=== PATIENT | male | born 1970 | race Caucasian/White ===

== ENCOUNTER 2016-09-02 10:01 | Emergency (ER) | payer BC ==
--- NOTE | 2016-09-02 10:50 | EDM.PDOC ---
ED HPI GENERAL MEDICAL PROBLEM - General Chief Complaint: Back Pain or Injury Stated Complaint: NECK and BACK PAIN Time Seen by Provider: 09/02/16 10:11 Source of Information: Reports: Patient History Limitations: Reports: No Limitations - History of Present Illness INITIAL COMMENTS - FREE TEXT/NARRATIVE: HISTORY AND PHYSICAL: History of present illness: [Patient comes to the emergency room at the request of his chiropractor. He has been complaining of left sided posterior neck pain for the past month. With Certain neck movements he has noticed headache, lightheadedness, blurred vision as well as seeing stars. He reports that the chiropractor was concerned because his eyes were bouncing around during her exam. She was concerned that he wasn't getting good blood flow to his head. He denies chest pain, shortness of breath and difficulty breathing. No fainting or loss of consciousness. Appetite has been good. No abdominal pain, nausea or vomiting. No difficulty passing his urine. Stools have been normal. Denies numbness and tingling to extremities. He also complains of L flank pain. He has a history of kidney stones and thinks that he may be trying to pass one. No fever or chills. No burning with urination or blood in his urine. Denies abdominal pain. Father is alive and well. Hx of colon CA. Mother is .] Review of systems: As per history of present illness and below otherwise all systems reviewed and negative. Past medical history: As per history of present illness and as reviewed below otherwise noncontributory. Surgical history: As per history of present illness and as reviewed below otherwise noncontributory. Social history: No reported history of drug or alcohol abuse. Family history: As per history of present illness and as reviewed below otherwise noncontributory. Physical exam: HEENT: Atraumatic, normocephalic. Neck is supple. No thyromegaly or swelling. No carotid bruit. Oral mucous membranes are pink and moist. Patient complains of blurred vision after auscultation of L carotid. Lungs: Clear to auscultation, breath sounds equal bilaterally. Heart: S1S2, regular, negative for clicks, rubs, or JVD. Abdomen: Soft, nondistended, nontender. Negative for masses, guarding or rebound. Negative for costovertebral tenderness. Pelvis: Stable nontender. Genitourinary: Deferred. Rectal: Deferred. Musculoskeletal: Feels lightheaded with neck flexion, left neck rotation, and right lateral flexion. Extremities: Atraumatic. No cyanosis or edema to feet or lower legs. Neurovascular unremarkable. Neuro: Awake, alert, oriented. Motor and sensory unremarkable throughout. Exam nonfocal. Diagnostics: [CBC, CMP, UA, CT abdomen and pelvis w/o contast, CTA head and neck] Therapeutics: [clonidine 0.2mg po] Impression: [Elevated BP] Plan: [Consulted with Dr. Inocencia De Oliveira who recommends a CTA head and neck, and no driving while he is having these symptoms. CTA head and neck show no abnormal findings. Patient feels that his symptoms have improved while he has been in the ER. Dr. De Oliveira would like to see patient in office next week. Pt is referred to establish w/ a local PCP. BP is consistently elevated while in the ER. Suspect that he always runs high. Will have him follow w/ PCP for reevaluation and initiation of medication if needed. Patient is advised that his abdominal CT scan shows no kidney stones. No driving until patient is evaluated by Dr. De Oliveira. ] Definitive disposition and diagnosis as appropriate pending reevaluation and review of above. back & head Pain Score (Numeric/FACES): 5 - Related Data Allergies Allergy/AdvReac Type Severity Reaction Status Date / Time No Known Allergies Allergy Verified 09/02/16 10:29 Home Meds: Home Meds Naproxen 250 mg PO DAILY 09/21/15 [History] Past Medical History HEENT History: Reports: None Cardiovascular History: Reports: None Respiratory History: Reports: None Gastrointestinal History: Reports: None Genitourinary History: Reports: Renal Calculus Musculoskeletal History: Reports: None Neurological History: Reports: None Psychiatric History: Reports: None Endocrine/Metabolic History: Reports: None Hematologic History: Reports: None Immunologic History: Reports: None Oncologic (Cancer) History: Reports: None Dermatologic History: Reports: None - Infectious Disease History Infectious Disease History: Reports: None - Past Surgical History Musculoskeletal Surgical History: Reports: Other (See Below) Other Musculoskeletal Surgeries/Procedures:: Back Surgery Social & Family History - Family History Family Medical History: Noncontributory - Tobacco Use Smoking Status *Q: Never Smoker Second Hand Smoke Exposure: No - Caffeine Use Caffeine Use: Reports: Soda - Recreational Drug Use Recreational Drug Use: No ED ROS GENERAL - Review of Systems Review Of Systems: ROS reveals no pertinent complaints other than HPI. ED EXAM, UPPER BACK/NECK PAIN - Physical Exam Exam: See Below Course - Vital Signs Last Recorded V/S: Last Vital Signs Temp 97.5 F 09/02/16 10:29 Pulse 73 09/02/16 15:46 Resp 16 09/02/16 15:46 BP 122/73 09/02/16 15:46 Pulse Ox 97 09/02/16 15:46 - Orders/Labs/Meds Orders: Active Orders 24 hr Category Date Time Status EKG Documentation Completion [RC] STAT Care 09/02/16 10:37 Active Ang Head [CT] Stat Exams 09/02/16 11:52 Taken CTA Neck W & W/O Contrast [Ang Neck] [CT] Stat Exams 09/02/16 11:52 Taken Labs: Laboratory Tests 09/02/16 09/02/16 09/02/16 Range/Units 11:04 11:04 11:13 WBC 7.60 (4.0-11.0) K/uL RBC 5.20 (4.50-5.90) M/uL Hgb 15.6 (13.0-17.0) g/dL Hct 45.5 (38.0-50.0) % MCV 87.5 (80.0-98.0) fL MCH 30.0 (27.0-32.0) pg MCHC 34.3 (31.0-37.0) g/dL RDW Std Deviation 38.7 (28.0-62.0) fl RDW Coeff of Alonso 12 (11.0-15.0) % Plt Count 289 (150-400) K/uL MPV 9.90 (7.40-12.00) fL Neut % (Auto) 64.4 (48.0-80.0) % Lymph % (Auto) 25.5 (16.0-40.0) % Kay % (Auto) 5.8 (0.0-15.0) % Eos % (Auto) 3.4 (0.0-7.0) % Baso % (Auto) 0.9 (0.0-1.5) % Neut # (Auto) 4.9 (1.4-5.7) K/uL Lymph # (Auto) 1.9 (0.6-2.4) K/uL Kay # (Auto) 0.4 (0.0-0.8) K/uL Eos # (Auto) 0.3 (0.0-0.7) K/uL Baso # (Auto) 0.1 (0.0-0.1) K/uL Nucleated RBC % 0.0 /100WBC Nucleated RBCs # 0 K/uL Sodium 139 (136-146) mmol/L Potassium 4.1 (3.5-5.1) mmol/L Chloride 105 (98-110) mmol/L Carbon Dioxide 27 (21-31) mmol/L BUN 11 (6.0-23.0) mg/dL Creatinine 0.9 (0.6-1.5) mg/dL Est Cr Clr Drug Dosing 118.37 mL/min Estimated GFR (MDRD) > 60.0 ml/min Glucose 146 H (60-110) mg/dL Calcium 8.7 L (8.8-10.8) mg/dL Total Bilirubin 0.6 (0.1-1.5) mg/dL AST 20 (5-40) IU/L ALT 43 (8-54) IU/L Alkaline Phosphatase 94 (40-150) Total Protein 7.0 (6.0-8.0) g/dL Albumin 3.7 (3.5-5.0) g/dL Globulin 3.3 (2.0-3.5) g/dL Albumin/Globulin Ratio 1.1 L (1.3-2.8) Urine Color YELLOW Urine Appearance CLEAR Urine pH 5.5 (5.0-8.0) Ur Specific [place] 1.025 (1.001-1.035) Urine Protein NEGATIVE (NEGATIVE) mg/dL Urine Glucose (UA) NEGATIVE (NEGATIVE) mg/dL Urine Ketones NEGATIVE (NEGATIVE) mg/dL Urine Occult Blood TRACE-INTACT (NEGATIVE) Urine Nitrite NEGATIVE (NEGATIVE) Urine Bilirubin NEGATIVE (NEGATIVE) Urine Urobilinogen 0.2 (<2.0) EU/dL Ur Leukocyte Esterase NEGATIVE (NEGATIVE) Urine RBC 0-1 (0-2/HPF) Urine WBC 1-3 (0-5/HPF) Ur Epithelial Cells RARE (NONE-FEW) Urine Bacteria FEW (NEGATIVE) Urine Mucus LIGHT (NONE-MOD) Meds: Medications Discontinued Medications Generic Name Dose Route Start Last Admin Trade Name Leena PRN Reason Stop Dose Admin Clonidine HCl 0.2 mg 09/02/16 14:15 09/02/16 14:20 Catapres PO 09/02/16 14:16 0.2 mg ONETIME ONE Administration Iopamidol 100 ml 09/02/16 12:28 09/02/16 13:04 Isovue Multipack-370 (76%) IVPUSH 09/02/16 12:29 100 ml ONETIME STA Administration Departure - Departure Time of Disposition: 15:45 Disposition: Home, Self-Care 01 Condition: Good Clinical Impression: Light-headed feeling, Elevated BP without diagnosis of hypertension - Discharge Information Referrals: PCP,Unknown [Primary Care Provider] - Forms: ED Department Discharge Additional Instructions: The following information is given to patients seen in the emergency department who are being discharged to home. This information is to outline your options for follow-up care. We provide all patients seen in our emergency department with a follow-up referral. The need for follow-up, as well as the timing and circumstances, are variable depending upon the specifics of your emergency department visit. If you don't have a primary care physician on staff, we will provide you with a referral. We always advise you to contact your personal physician following an emergency department visit to inform them of the circumstance of the visit and for follow-up with them and/or the need for any referrals to a consulting specialist. The emergency department will also refer you to a specialist when appropriate. This referral assures that you have the opportunity for follow-up care with a specialist. All of these measure are taken in an effort to provide you with optimal care, which includes your follow-up. Under all circumstances we always encourage you to contact your private physician who remains a resource for coordinating your care. When calling for follow-up care, please make the office aware that this follow-up is from your recent emergency room visit. If for any reason you are refused follow-up, please contact the [facility] emergency department at and asked to speak to the emergency department charge nurse. [facility] Specialty care- Neurology Professional Building [address] [place] [address], [address] [place] [address] Call and schedule an appointment with Dr. De Oliveira at the above listed phone number. She would like to see you next week. [facility] [address] [place] [id number] Call and schedule an appointment with a provider at the above listed clinic to establish medical care. You have been advised not to drive any motor vehicle until you see neurologist. Return to ER as needed as discussed. - My Orders Last 24 Hours: My Active Orders 09/02/16 10:37 EKG Documentation Completion [RC] STAT 09/02/16 11:52 Ang Head [CT] Stat CTA Neck W & W/O Contrast [Ang Neck] [CT] Stat - Assessment/Plan Last 24 Hours: My Active Orders 09/02/16 10:37 EKG Documentation Completion [RC] STAT 09/02/16 11:52 Ang Head [CT] Stat CTA Neck W & W/O Contrast [Ang Neck] [CT] Stat
[2016-09-02 11:32] LABS: CHLORIDE,CL 105 mmol/L (98-110); SODIUM,NA 139 mmol/L (136-146)
[2016-09-02] MEDS ORDERED: Iopamidol 755 MG/ML 500 ML Multipack Bottle IVPUSH STA (12:28)
--- NOTE | 2016-09-02 13:33 | CT ---
EXAM DATE: 09/02/16 PATIENT'S AGE: 45 Patient: ALONA CASTANEDA Facility: [place], [place] Site . Site : 1970 Study: CT Abdomen/Pelvis [id number]/21/2017 1:03:32 PM Ordering Physician: Sin Henry Final Report: INDICATION: Left flank pain. Nephrolithiasis. TECHNIQUE: CT abdomen and pelvis without contrast. COMPARISON: September 21, 2015. FINDINGS: LOWER CHEST: Unremarkable. LIVER: Normal in size and attenuation. No masses. GALLBLADDER AND BILE DUCTS: No stones or inflammation. No biliary dilatation. PANCREAS: Unremarkable. No mass or inflammation. SPLEEN: Normal in size. No masses. ADRENAL GLANDS: Normal in size. No nodules. KIDNEYS: Normal. Bowel nonobstructive bilateral renal stones. No ureteral stones and no hydronephrosis. No sign of perinephric edema. GI TRACT: Unremarkable. Normal in caliber. No sign of mass or inflammation. VASCULATURE: Unremarkable. LYMPH NODES: No lymphadenopathy. OMENTUM/PERITONEUM/ABDOMINAL WALL: Unremarkable. No sign of mass or infiltration. No free air or significant free fluid. PELVIS: Unremarkable. No pelvic masses. BONES: Unremarkable for age. IMPRESSION: Nonobstructive bilateral nephrolithiasis. No ureteral stones, hydronephrosis, or other explanation for left flank pain. Dictated by Jeronimo Weiner MD @ 09/02/2016 1:26:54 PM Dictated by: Jeronimo Weiner MD @ 09/02/2016 13:27:18 (Electronic Signature) Report Signed by Proxy. [facility] STATE HOSPITALJodee
[2016-09-02] MEDS ORDERED: cloNIDine 0.1 MG Tab PO ONE (14:15)
[2016-09-02 16:37] VITALS: BP 137/90
--- NOTE | 2016-09-05 11:15 | CT ---
EXAM DATE: 09/02/16 PATIENT'S AGE: 45 Patient: ALONA CASTANEDA Facility: [place], [place] Site . Site : 1970 Study: CT Head Angio [id number]/21/2017 2:01:04 PM Ordering Physician: Sin Henry Final Report: Indication: Headache, blurry vision, and neck pain. TECHNIQUE: CTA of the head and neck was performed after the administration of intravenous contrast. Multiplanar Maximum Intensity Projections (MIPs) were created on a separate workstation at the request of the referring physician. COMPARISON: None available FINDINGS: Angiographic findings: Neck: The neck CTA is nondiagnostic, because there is minimal, if any, contrast opacification of the cervical arteries. There is no atherosclerotic calcification of the aortic arch or origins of the brachiocephalic vessels. The configuration of the brachiocephalic vessels is typical. The right carotid bifurcation lies at the C4-C5 intervertebral level. The left carotid bifurcation lies at the C5 vertebral level. There is no atherosclerotic calcification of either carotid bifurcation. Head: The intracranial internal carotid arteries are normal. An anterior communicating artery is well visualized and is normal. The anterior and middle cerebral arteries are normal. There is a tiny right posterior communicating artery. The vertebral arteries are codominant. The intracranial vertebral arteries are normal. Both posterior inferior cerebellar arteries are normal. The basilar artery is normal. Both anterior inferior cerebellar arteries are normal. Both superior cerebellar and posterior cerebral arteries are normal. There is no aneurysm or vascular malformation. Deep cerebral veins and dural venous sinuses are unremarkable. Non-angiographic findings: Ventricles are of normal size and morphology. No mass effect or midline shift is present. The visualized portions of the orbits are normal. There is no cervical lymphadenopathy. The thyroid and salivary glands are normal. The muscles of the neck are normal. Fascial planes are preserved and the deep spaces of the neck are normal. The visualized airway is widely patent. The visualized lungs are clear. The paranasal sinuses and mastoid air cells are clear. There are no suspicious lytic or blastic lesions. IMPRESSION: 1. No intracranial vascular abnormality. 2. Neck CTA is nondiagnostic for evaluation of cervical artery stenosis because the cervical arteries are not opacified with contrast. Please note that all CT scans at this facility use dose modulation, iterative reconstruction, and/or weight-based dosing when appropriate to reduce radiation dose to as low as reasonably achievable. Dictated by Hakan Landrum MD @ Sep 02 2016 2:24PM (Electronic Signature) Report Signed by Proxy. MTDD
--- NOTE | 2016-09-05 11:16 | CT ---
EXAM DATE: 09/02/16 PATIENT'S AGE: 45 Patient: ALONA CASTANEDA Facility: [place], [place] Site . Site : 1970 Study: CT Head Angio [id number]/21/2017 2:01:04 PM Ordering Physician: Sin Henry Final Report: Indication: Headache, blurry vision, and neck pain. TECHNIQUE: CTA of the head and neck was performed after the administration of intravenous contrast. Multiplanar Maximum Intensity Projections (MIPs) were created on a separate workstation at the request of the referring physician. COMPARISON: None available FINDINGS: Angiographic findings: Neck: The neck CTA is nondiagnostic, because there is minimal, if any, contrast opacification of the cervical arteries. There is no atherosclerotic calcification of the aortic arch or origins of the brachiocephalic vessels. The configuration of the brachiocephalic vessels is typical. The right carotid bifurcation lies at the C4-C5 intervertebral level. The left carotid bifurcation lies at the C5 vertebral level. There is no atherosclerotic calcification of either carotid bifurcation. Head: The intracranial internal carotid arteries are normal. An anterior communicating artery is well visualized and is normal. The anterior and middle cerebral arteries are normal. There is a tiny right posterior communicating artery. The vertebral arteries are codominant. The intracranial vertebral arteries are normal. Both posterior inferior cerebellar arteries are normal. The basilar artery is normal. Both anterior inferior cerebellar arteries are normal. Both superior cerebellar and posterior cerebral arteries are normal. There is no aneurysm or vascular malformation. Deep cerebral veins and dural venous sinuses are unremarkable. Non-angiographic findings: Ventricles are of normal size and morphology. No mass effect or midline shift is present. The visualized portions of the orbits are normal. There is no cervical lymphadenopathy. The thyroid and salivary glands are normal. The muscles of the neck are normal. Fascial planes are preserved and the deep spaces of the neck are normal. The visualized airway is widely patent. The visualized lungs are clear. The paranasal sinuses and mastoid air cells are clear. There are no suspicious lytic or blastic lesions. IMPRESSION: 1. No intracranial vascular abnormality. 2. Neck CTA is nondiagnostic for evaluation of cervical artery stenosis because the cervical arteries are not opacified with contrast. Please note that all CT scans at this facility use dose modulation, iterative reconstruction, and/or weight-based dosing when appropriate to reduce radiation dose to as low as reasonably achievable. Dictated by Hakan Landrum MD @ Sep 02 2016 2:24PM (Electronic Signature) Report Signed by Proxy. MTDD
== END 2016-09-02 15:59 | disposition home or self-care (01) ==
LOC: MW.ED 10:01
DX: R03.0 Elevated blood-pressure reading, without diagnosis of hypertension (principal); Z79.899 Other long term (current) drug therapy
CPT/HCPCS: 36415; 70496; 70498; 74176; 80053; 81001; 85025; 93005; 99284; A9270; Q9967; 99283

== ENCOUNTER 2018-03-12 22:06 | Emergency (ER) | payer BC ==
[2018-03-12] MEDS ORDERED: Ondansetron 4 MG/2 ML SDV IVPUSH ONE (22:18)
[2018-03-12] MEDS ORDERED: Ketorolac 30 MG/ML SDV IVPUSH ONE (22:18)
[2018-03-12] MEDS ORDERED: Sodium Chloride 0.9% 1,000 ML IV ONE (22:18)
--- NOTE | 2018-03-12 22:19 | EDM.PDOC ---
ED HPI GENERAL MEDICAL PROBLEM - General Chief Complaint: Flank Pain Stated Complaint: KIDNEY STONE Time Seen by Provider: 03/12/18 22:16 - History of Present Illness INITIAL COMMENTS - FREE TEXT/NARRATIVE: HISTORY AND PHYSICAL: History of present illness: Patient's 47-year-old white male with history of urolithiasis who presents with acute right flank pain with associated nausea there's been no fever chills no trauma no other concern he had a similar episode in recent past. Review of systems: As per history of present illness and below otherwise all systems reviewed and negative. Past medical history: As per history of present illness and as reviewed below otherwise noncontributory. Surgical history: As per history of present illness and as reviewed below otherwise noncontributory. Social history: No reported history of drug or alcohol abuse. Family history: As per history of present illness and as reviewed below otherwise noncontributory. Physical exam: HEENT: Atraumatic, normocephalic, pupils reactive, negative for conjunctival pallor or scleral icterus, mucous membranes moist, throat clear, neck supple, nontender, trachea midline. Lungs: Clear to auscultation, breath sounds equal bilaterally, chest nontender. Heart: S1S2, regular, negative for clicks, rubs, or JVD. Abdomen: Soft, nondistended, nontender. Negative for masses or hepatosplenomegaly. Right-sided costovertebral tenderness. Pelvis: Stable nontender. Genitourinary: Deferred. Rectal: Deferred. Extremities: Atraumatic, negative for cords or calf pain. Neurovascular unremarkable. Neuro: Awake, alert, oriented. Cranial nerves II through XII unremarkable. Cerebellum unremarkable. Motor and sensory unremarkable throughout. Exam nonfocal. Diagnostics: CBC CMP UA CT abdomen and pelvis Therapeutics: Saline 1 L bolus and Toradol 30 mg IV Zofran 4 mg IV Impression: #1 acute right flank pain #2 history of urolithiasis Definitive disposition and diagnosis as appropriate pending reevaluation and review of above. left flank Pain Score (Numeric/FACES): 5 - Related Data Allergies Allergy/AdvReac Type Severity Reaction Status Date / Time No Known Allergies Allergy Verified 03/12/18 22:22 Home Meds: Home Meds Losartan [Cozaar] 100 mg BEDTIME 01/19/18 [History] Tamsulosin [Flomax] 0.4 mg PO DAILY #14 cap.er 01/19/18 [Rx] amLODIPine Besylate [Norvasc] 5 mg BEDTIME 01/19/18 [History] atorvaSTATin [Lipitor] 10 mg BEDTIME 01/19/18 [History] Past Medical History HEENT History: Reports: None Cardiovascular History: Reports: None Respiratory History: Reports: None Gastrointestinal History: Reports: None Genitourinary History: Reports: Renal Calculus Musculoskeletal History: Reports: None Neurological History: Reports: None Psychiatric History: Reports: None Endocrine/Metabolic History: Reports: None Hematologic History: Reports: None Immunologic History: Reports: None Oncologic (Cancer) History: Reports: None Dermatologic History: Reports: None - Infectious Disease History Infectious Disease History: Reports: None - Past Surgical History Musculoskeletal Surgical History: Reports: Other (See Below) Other Musculoskeletal Surgeries/Procedures:: Back Surgery Social & Family History - Family History Family Medical History: Noncontributory - Caffeine Use Caffeine Use: Reports: Soda ED ROS GENERAL - Review of Systems Review Of Systems: ROS reveals no pertinent complaints other than HPI. ED EXAM, GENERAL - Physical Exam Exam: See Below (See dictation) Course - Vital Signs Text/Narrative:: Case was discussed with urology on-call including CT findings on these results were also reviewed with patient and family will be discharged home he is to call Dr. Wallace office in a.m. to schedule appointment in the next several days and be discharged on hydrocodone and Zofran to take as prescribed and is to continue his Flomax Last Recorded V/S: Last Vital Signs Temp 36.2 C 03/12/18 22:06 Pulse 87 03/12/18 22:06 Resp 16 03/12/18 22:06 BP 181/117 H 03/12/18 22:06 Pulse Ox 95 03/12/18 22:06 - Orders/Labs/Meds Orders: Active Orders 24 hr Category Date Time Status COMPREHENSIVE METABOLIC PN,CMP [CHEM] Stat Lab 03/12/18 22:25 Received Labs: Laboratory Tests 03/12/18 03/12/18 Range/Units 22:15 22:25 WBC 11.23 H (4.0-11.0) K/uL RBC 5.11 (4.50-5.90) M/uL Hgb 15.6 (13.0-17.0) g/dL Hct 44.9 (38.0-50.0) % MCV 87.9 (80.0-98.0) fL MCH 30.5 (27.0-32.0) pg MCHC 34.7 (31.0-37.0) g/dL RDW Std Deviation 38.3 (28.0-62.0) fl RDW Coeff of Alonso 12 (11.0-15.0) % Plt Count 308 (150-400) K/uL MPV 9.50 (7.40-12.00) fL Neut % (Auto) 77.3 (48.0-80.0) % Lymph % (Auto) 15.1 L (16.0-40.0) % [place] % (Auto) 5.1 (0.0-15.0) % Eos % (Auto) 2.1 (0.0-7.0) % Baso % (Auto) 0.4 (0.0-1.5) % Neut # (Auto) 8.7 H (1.4-5.7) K/uL Lymph # (Auto) 1.7 (0.6-2.4) K/uL [place] # (Auto) 0.6 (0.0-0.8) K/uL Eos # (Auto) 0.2 (0.0-0.7) K/uL Baso # (Auto) 0.0 (0.0-0.1) K/uL Nucleated RBC % 0.0 /100WBC Nucleated RBCs # 0 K/uL Urine Color YELLOW Urine Appearance CLEAR Urine pH 5.5 (5.0-8.0) Ur Specific [place] >= 1.030 (1.001-1.035) Urine Protein TRACE H (NEGATIVE) mg/dL Urine Glucose (UA) 500 H (NEGATIVE) mg/dL Urine Ketones NEGATIVE (NEGATIVE) mg/dL Urine Occult Blood LARGE H (NEGATIVE) Urine Nitrite NEGATIVE (NEGATIVE) Urine Bilirubin NEGATIVE (NEGATIVE) Urine Urobilinogen 0.2 (<2.0) EU/dL Ur Leukocyte Esterase NEGATIVE (NEGATIVE) Urine RBC 27-30 (0-2/HPF) Urine WBC 0-3 (0-5/HPF) Ur Epithelial Cells RARE (NONE-FEW) Urine Bacteria RARE (NEGATIVE) Urine Mucus LIGHT (NONE-MOD) Meds: Medications Discontinued Medications Generic Name Dose Route Start Last Admin Trade Name Freq PRN Reason Stop Dose Admin Hydromorphone HCl 1 mg 03/12/18 23:07 03/12/18 23:11 Dilaudid IVPUSH 03/12/18 23:08 1 mg ONETIME ONE Administration Sodium Chloride 1,000 mls @ 999 mls/hr 03/12/18 22:18 03/12/18 23:07 Normal Saline IV 03/12/18 23:18 999 mls/hr BOLUS ONE Administration Ketorolac Tromethamine 30 mg 03/12/18 22:18 03/12/18 22:26 Toradol IVPUSH 03/12/18 22:19 30 mg ONETIME ONE Administration Ondansetron HCl 4 mg 03/12/18 22:18 03/12/18 22:27 Zofran IVPUSH 03/12/18 22:19 4 mg ONETIME ONE Administration Departure - Departure Time of Disposition: 23:25 Disposition: Home, Self-Care 01 Condition: Good Clinical Impression: Ureteric colic, Kidney stone, Ureterolithiasis - Discharge Information Referrals: PCP,None [Primary Care Provider] - Forms: ED Department Discharge Additional Instructions: The following information is given to patients seen in the emergency department who are being discharged to home. This information is to outline your options for follow-up care. We provide all patients seen in our emergency department with a follow-up referral. The need for follow-up, as well as the timing and circumstances, are variable depending upon the specifics of your emergency department visit. If you don't have a primary care physician on staff, we will provide you with a referral. We always advise you to contact your personal physician following an emergency department visit to inform them of the circumstance of the visit and for follow-up with them and/or the need for any referrals to a consulting specialist. The emergency department will also refer you to a specialist when appropriate. This referral assures that you have the opportunity for followup care with a specialist. All of these measure are taken in an effort to provide you with optimal care, which includes your followup. Under all circumstances we always encourage you to contact your private physician who remains a resource for coordinating your care. When calling for followup care, please make the office aware that this follow-up is from your recent emergency room visit. If for any reason you are refused follow-up, please contact the [facility] emergency department at and asked to speak to the emergency department charge nurse. [facility] - Urology [address] [place] [id number] Hydrocodone Zofran as prescribed continue Flomax call to schedule appointment above as discussed and return as needed as discussed - My Orders Last 24 Hours: My Active Orders 03/12/18 22:25 COMPREHENSIVE METABOLIC PN,CMP [CHEM] Stat - Assessment/Plan Last 24 Hours: My Active Orders 03/12/18 22:25 COMPREHENSIVE METABOLIC PN,CMP [CHEM] Stat
--- NOTE | 2018-03-12 23:01 | CT ---
INDICATION: Left flank pain TECHNIQUE: CT abdomen and pelvis without contrast. COMPARISON: Abdomen and pelvis CT 01/19/2018 FINDINGS: Lower chest: Unremarkable. Liver: Normal in size and attenuation. No masses. Gallbladder and bile ducts: No stones or inflammation. No biliary dilatation. Pancreas: Unremarkable. No mass or inflammation. Spleen: Normal in size. No masses. Adrenal glands: Normal in size. No nodules. Kidneys: Nonobstructing stones on the right with a right ureteropelvic junction stone measuring 6 millimeters without significant hydronephrosis. Multiple nonobstructing stones are also present on the left with 2 adjacent left ureteropelvic junction stones measuring 8 x 6 millimeters and total although without evidence of hydronephrosis. GI tract: There are nondilated loops of large or small intestine. Vasculature: Unremarkable. Lymph nodes: No lymphadenopathy. Abdominal wall/Omentum/Peritoneum: Unremarkable. No sign of mass or infiltration. No free air or significant free fluid. Pelvis: Unremarkable. No pelvic masses. Bones: Mild degenerative disc disease lumbar spine. IMPRESSION: 1. Nephrolithiasis with 2 clustered stones at the left ureteropelvic junction measuring 8 x 6 millimeters in total although without evidence of hydronephrosis. 2. Right ureteropelvic junction stone re-demonstrated measuring 6 millimeters without hydronephrosis. Please note that all CT scans at this facility use dose modulation, iterative reconstruction, and/or weight-based dosing when appropriate to reduce radiation dose to as low as reasonably achievable. Dictated by Michael Torres MD @ Mar 12 2018 10:53PM Signed by Dr. Michael Torres @ Mar 12 2018 11:00PM
[2018-03-12] MEDS ORDERED: HYDROmorphone 1 MG/ML Syringe IVPUSH ONE (23:07)
[2018-03-12 23:29] LABS: CHLORIDE,CL 102 mmol/L (98-107); SODIUM,NA 137 mmol/L (136-148)
[2018-03-12 23:38] VITALS: BP 159/102
== END 2018-03-12 23:38 | disposition home or self-care (01) ==
LOC: MW.ED 22:06
DX: N20.2 Calculus of kidney with calculus of ureter (principal); Z79.899 Other long term (current) drug therapy
CPT/HCPCS: 36415; 74176; 80053; 81001; 85025; 96361; 96374; 96375; 99284; J1170; J1885; J2405; J7040

== ENCOUNTER 2018-09-07 16:19 | Emergency (ER) | payer BC ==
[2018-09-07] MEDS ORDERED: Sodium Chloride 0.9% 2.5 ML Syringe FLUSH PRN (16:36)
[2018-09-07] MEDS ORDERED: Sodium Chloride 0.9% 10 ML Syringe FLUSH PRN (16:36)
--- NOTE | 2018-09-07 16:38 | EDM.PDOC ---
ED HPI GENERAL MEDICAL PROBLEM - General Chief Complaint: Genitourinary Problem Stated Complaint: peeing blood Time Seen by Provider: 09/07/18 16:37 Source of Information: Reports: Patient History Limitations: Reports: No Limitations - History of Present Illness INITIAL COMMENTS - FREE TEXT/NARRATIVE: HISTORY AND PHYSICAL: History of present illness: Patient is a 47-year-old male presents to the ED for blood in his urine. He states he's had grossly bloody urine x 3 days. He has a history of kidney stones but denies any back, abdominal, testicular pain. Denies fevers, chills, nausea, vomiting, diarrhea. Denies smoking history. Review of systems: As per history of present illness and below otherwise all systems reviewed and negative. Past medical history: As per history of present illness and as reviewed below otherwise noncontributory. Surgical history: As per history of present illness and as reviewed below otherwise noncontributory. Social history: No reported history of drug or alcohol abuse. Family history: As per history of present illness and as reviewed below otherwise noncontributory. Physical exam: General: Patient sitting comfortably in no acute distress and nontoxic appearing HEENT: Atraumatic, normocephalic, pupils reactive, negative for conjunctival pallor or scleral icterus, mucous membranes moist, throat clear, neck supple, nontender, trachea midline. No meningeal signs. Lungs: Clear to auscultation, breath sounds equal bilaterally, chest nontender. Heart: S1S2, regular, negative for clicks, rubs, or overt murmur. Abdomen: Soft, nondistended, nontender. Negative for masses or hepatosplenomegaly. Negative for costovertebral tenderness. No rigidity, rebound , guarding. Pelvis: Stable nontender. Genitourinary: Deferred. Rectal: Deferred. Extremities: Atraumatic, negative for cords or calf pain. Neurovascular unremarkable. Neuro: Awake, alert, oriented. Cranial nerves II through XII unremarkable. Cerebellum unremarkable. Motor and sensory unremarkable throughout. Exam nonfocal. Notes: Diagnostics: CBC, CMP, UA, CT abdomen/pelvis Therapeutics: [] Prescriptions: Impression: Hematuria, kidney stones Plan: Take flomax as instructed follow-up with urology as instructed Return to ED as needed as discussed Definitive disposition and diagnosis as appropriate pending reevaluation and review of above. - Related Data Allergies Allergy/AdvReac Type Severity Reaction Status Date / Time No Known Allergies Allergy Verified 03/14/18 11:53 Home Meds: Home Meds Losartan [Cozaar] 100 mg PO BEDTIME 01/19/18 [History] amLODIPine Besylate [Norvasc] 5 mg PO BEDTIME 01/19/18 [History] atorvaSTATin [Lipitor] 10 mg PO BEDTIME 01/19/18 [History] Cetirizine [ZyrTEC] 10 mg PO BEDTIME 03/14/18 [History] Hydrocodone/Acetaminophen [Lorcet 5-325 mg Tablet] 1 tab PO ASDIRECTED PRN 03/14 [History] Tamsulosin [Flomax] 0.4 mg PO BEDTIME 03/14/18 [History] Past Medical History HEENT History: Reports: Allergic Rhinitis Cardiovascular History: Reports: High Cholesterol, Hypertension Respiratory History: Reports: None Gastrointestinal History: Reports: None Genitourinary History: Reports: Renal Calculus Other Genitourinary History: has passes several stones Musculoskeletal History: Reports: Fracture Other Musculoskeletal History: hx of fx toe Neurological History: Reports: Migraines Psychiatric History: Reports: None Endocrine/Metabolic History: Reports: Obesity/BMI 30+ Hematologic History: Reports: None Immunologic History: Reports: None Oncologic (Cancer) History: Reports: None Dermatologic History: Reports: None - Infectious Disease History Infectious Disease History: Reports: None - Past Surgical History Neurological Surgical History: Reports: Laminectomy, Lumbar Spine Social & Family History - Family History Family Medical History: Noncontributory - Tobacco Use Smoking Status *Q: Never Smoker - Caffeine Use Caffeine Use: Reports: Soda - Recreational Drug Use Recreational Drug Use: No ED ROS GENERAL - Review of Systems Review Of Systems: ROS reveals no pertinent complaints other than HPI. ED EXAM, RENAL/ - Physical Exam Exam: See Below (see dictation) Course - Vital Signs Last Recorded V/S: Last Vital Signs Temp 97.3 F 09/07/18 16:31 Pulse 85 09/07/18 16:31 Resp 18 09/07/18 16:31 BP 144/104 H 09/07/18 16:31 Pulse Ox 96 09/07/18 16:31 - Orders/Labs/Meds Orders: Active Orders 24 hr Category Date Time Status Sodium Chloride 0.9% [Saline Flush] Med 09/07/18 16:36 Active 10 ml FLUSH ASDIRECTED PRN Sodium Chloride 0.9% [Saline Flush] Med 09/07/18 16:36 Active 2.5 ml FLUSH ASDIRECTED PRN Saline Lock Insert [OM.PC] Stat Oth 09/07/18 16:36 Ordered Medication Orders Sodium Chloride (Saline Flush) 10 ml FLUSH ASDIRECTED PRN PRN Reason: Keep Vein Open Last Admin: 09/07/18 16:55 Dose: 10 ml Sodium Chloride (Saline Flush) 2.5 ml FLUSH ASDIRECTED PRN PRN Reason: Keep Vein Open Last Admin: 09/07/18 16:55 Dose: 2.5 ml Labs: Laboratory Tests 09/07/18 09/07/18 09/07/18 Range/Units 16:48 16:50 16:50 WBC 7.35 (4.0-11.0) K/uL RBC 5.14 (4.50-5.90) M/uL Hgb 15.4 (13.0-17.0) g/dL Hct 45.7 (38.0-50.0) % MCV 88.9 (80.0-98.0) fL MCH 30.0 (27.0-32.0) pg MCHC 33.7 (31.0-37.0) g/dL RDW Std Deviation 40.0 (28.0-62.0) fl RDW Coeff of Alonso 13 (11.0-15.0) % Plt Count 283 (150-400) K/uL MPV 9.60 (7.40-12.00) fL Neut % (Auto) 64.0 (48.0-80.0) % Lymph % (Auto) 25.7 (16.0-40.0) % [place] % (Auto) 6.9 (0.0-15.0) % Eos % (Auto) 3.0 (0.0-7.0) % Baso % (Auto) 0.4 (0.0-1.5) % Neut # (Auto) 4.7 (1.4-5.7) K/uL Lymph # (Auto) 1.9 (0.6-2.4) K/uL [place] # (Auto) 0.5 (0.0-0.8) K/uL Eos # (Auto) 0.2 (0.0-0.7) K/uL Baso # (Auto) 0.0 (0.0-0.1) K/uL Nucleated RBC % 0.0 /100WBC Nucleated RBCs # 0 K/uL Sodium 140 (136-148) mmol/L Potassium 3.7 (3.5-5.1) mmol/L Chloride 104 (98-107) mmol/L Carbon Dioxide 26.5 (21.0-32.0) mmol/L BUN 15 (7.0-18.0) mg/dL Creatinine 1.0 (0.8-1.3) mg/dL Est Cr Clr Drug Dosing 104.31 mL/min Estimated GFR (MDRD) > 60.0 ml/min Glucose 111 H (74-106) mg/dL Calcium 9.1 (8.5-10.1) mg/dL Total Bilirubin 0.5 (0.2-1.0) mg/dL AST 16 (15-37) IU/L ALT 40 (14-63) IU/L Alkaline Phosphatase 118 H (46-116) U/L Total Protein 7.9 (6.4-8.2) g/dL Albumin 3.8 (3.4-5.0) g/dL Globulin 4.1 H (2.6-4.0) g/dL Albumin/Globulin Ratio 0.9 (0.9-1.6) Urine Color DARK YELLOW Urine Appearance CLOUDY Urine pH 5.0 (5.0-8.0) Ur Specific [place] >= 1.030 (1.001-1.035) Urine Protein 30 H (NEGATIVE) mg/dL Urine Glucose (UA) NEGATIVE (NEGATIVE) mg/dL Urine Ketones NEGATIVE (NEGATIVE) mg/dL Urine Occult Blood LARGE H (NEGATIVE) Urine Nitrite NEGATIVE (NEGATIVE) Urine Bilirubin NEGATIVE (NEGATIVE) Urine Urobilinogen 0.2 (<2.0) EU/dL Ur Leukocyte Esterase NEGATIVE (NEGATIVE) Urine RBC TOO NUMEROUS TO CT (0-2/HPF) Urine WBC 0-3 (0-5/HPF) Ur Epithelial Cells RARE (NONE-FEW) Urine Bacteria FEW (NEGATIVE) Urine Mucus LIGHT (NONE-MOD) Meds: Medications Generic Name Dose Route Start Last Admin Trade Name Freq PRN Reason Stop Dose Admin Sodium Chloride 10 ml 09/07/18 16:36 09/07/18 16:55 Saline Flush FLUSH 10 ml ASDIRECTED PRN Administration Keep Vein Open Sodium Chloride 2.5 ml 09/07/18 16:36 09/07/18 16:55 Saline Flush FLUSH 2.5 ml ASDIRECTED PRN Administration Keep Vein Open Discontinued Medications Generic Name Dose Route Start Last Admin Trade Name Freq PRN Reason Stop Dose Admin Iopamidol 100 ml 09/07/18 18:05 09/07/18 18:05 Isovue Multipack-370 (76%) IVPUSH 09/07/18 18:06 100 ml ONETIME STA Administration Departure - Departure Time of Disposition: 19:00 Disposition: Home, Self-Care 01 Condition: Good Clinical Impression: Hematuria, Kidney stone - Discharge Information Referrals: PCP,Unknown [Primary Care Provider] - Magali Kincaid MD [Physician] - 1 Week (kidney stones ) Forms: ED Department Discharge Additional Instructions: The following information is given to patients seen in the emergency department who are being discharged to home. This information is to outline your options for follow-up care. We provide all patients seen in our emergency department with a follow-up referral. The need for follow-up, as well as the timing and circumstances, are variable depending upon the specifics of your emergency department visit. If you don't have a primary care physician on staff, we will provide you with a referral. We always advise you to contact your personal physician following an emergency department visit to inform them of the circumstance of the visit and for follow-up with them and/or the need for any referrals to a consulting specialist. The emergency department will also refer you to a specialist when appropriate. This referral assures that you have the opportunity for follow-up care with a specialist. All of these measure are taken in an effort to provide you with optimal care, which includes your follow-up. Under all circumstances we always encourage you to contact your private physician who remains a resource for coordinating your care. When calling for follow-up care, please make the office aware that this follow-up is from your recent emergency room visit. If for any reason you are refused follow-up, please contact the [facility] Emergency Department at and asked to speak to the emergency department charge nurse. [facility] [address] [place] [address] [facility] [address] [place] [id number] [facility] - Urology [address] [place] [address] Take flomax as instructed follow-up with urology as instructed Return to ED as needed as discussed - My Orders Last 24 Hours: My Active Orders 09/07/18 16:36 Sodium Chloride 0.9% [Saline Flush] 10 ml FLUSH ASDIRECTED PRN Sodium Chloride 0.9% [Saline Flush] 2.5 ml FLUSH ASDIRECTED PRN Saline Lock Insert [OM.PC] Stat - Assessment/Plan Last 24 Hours: My Active Orders 09/07/18 16:36 Sodium Chloride 0.9% [Saline Flush] 10 ml FLUSH ASDIRECTED PRN Sodium Chloride 0.9% [Saline Flush] 2.5 ml FLUSH ASDIRECTED PRN Saline Lock Insert [OM.PC] Stat
[2018-09-07 17:39] LABS: CHLORIDE,CL 104 mmol/L (98-107); SODIUM,NA 140 mmol/L (136-148)
[2018-09-07] MEDS ORDERED: Iopamidol 755 MG/ML 500 ML Multipack Bottle IVPUSH STA (18:05)
--- NOTE | 2018-09-07 18:43 | CT ---
INDICATION: HEMATURIA, HX OF STONES TECHNIQUE: CT abdomen and pelvis without and with 100 cc Isovue 370 contrast. COMPARISON: March 15, 2018 FINDINGS: Lower chest: Unremarkable. Liver: Unremarkable. Spleen: Unremarkable. Pancreas: Unremarkable. Gallbladder and bile ducts: Unremarkable. Adrenal glands: Unremarkable. Kidneys: There is a 5 mm stone in the proximal left ureter but no left-sided hydronephrosis. There are a few stones in the left kidney measuring up to 3 mm in diameter. There are a few right-sided renal stones measuring up to 4.4 mm in diameter. GI tract: Unremarkable. Appendix is normal. Vascular structures: Unremarkable. Lymph nodes: Unremarkable. Miscellaneous: Unremarkable. No free air or significant free fluid. Pelvic Organs: Unremarkable. Bones: Unremarkable for age. IMPRESSION: There is a 5 mm stone in the proximal left ureter but no left-sided hydronephrosis. There are bilateral renal stones. No evidence for enhancing renal mass. Please note that all CT scans at this facility use dose modulation, iterative reconstruction, and/or weight-based dosing when appropriate to reduce radiation dose to as low as reasonably achievable. Dictated by Vidhi Cavanaugh MD @ Sep 07 2018 6:42PM Signed by Dr. Vidhi Cavanaugh @ Sep 07 2018 6:42PM
[2018-09-07 19:31] VITALS: BP 161/111
== END 2018-09-07 19:25 | disposition home or self-care (01) ==
LOC: MW.ED 16:19
DX: N20.2 Calculus of kidney with calculus of ureter (principal); E78.00 Pure hypercholesterolemia, unspecified; I10 Essential (primary) hypertension; Z79.899 Other long term (current) drug therapy
CPT/HCPCS: 74178; 80053; 81001; 85025; 99284; Q9967; 99283

== ENCOUNTER 2018-09-08 21:23 | Emergency (ER) | payer BC ==
--- NOTE | 2018-09-08 21:44 | EDM.PDOC ---
ED HPI GENERAL MEDICAL PROBLEM - General Chief Complaint: Genitourinary Problem Stated Complaint: KIDNEY STONE Time Seen by Provider: 09/08/18 21:37 Source of Information: Reports: Patient History Limitations: Reports: No Limitations - History of Present Illness INITIAL COMMENTS - FREE TEXT/NARRATIVE: HISTORY AND PHYSICAL: History of present illness: Patient is a 47 showed male who presents to the emergency room with complaints of left flank pain. Patient was seen on 09/07/2018 in our ER for kidney stone. CT shows a 5 mm stone in the proximal left ureter without left-sided hydronephrosis. A few bilateral renal stones in the kidneys. He states he had Flomax available to him and he wasn't having much pain at the time of his initial visit and therefore did not request any pain medication. He states today the pain "all of a sudden hit me" and Tylenol and ibuprofen is not alleviating his discomfort. He does have a follow-up appointment with urology on Monday. Patient denies any fever, chills, headache, change in vision, syncope or near syncope. Denies any chest pain, back pain, shortness of breath or cough. Denies any abdominal pain, nausea, vomiting, diarrhea, or constipation. Has not noted any blood in urine or stool. Patient has been eating and drinking appropriately. Review of systems: As per history of present illness and below otherwise all systems reviewed and negative. Past medical history: As per history of present illness and as reviewed below otherwise noncontributory. Surgical history: As per history of present illness and as reviewed below otherwise noncontributory. Social history: See social history for further information Family history: As per history of present illness and as reviewed below otherwise noncontributory. Physical exam: General: Well-developed and well-nourished 47 showed male. Alert and oriented. Nontoxic appearing and in no acute distress. HEENT: Atraumatic, normocephalic, pupils equal and reactive bilaterally, negative for conjunctival pallor or scleral icterus, mucous membranes moist, TMs normal bilaterally, throat clear, neck supple, nontender, trachea midline. No drooling or trismus noted. No meningeal signs. No hot potato voice noted. Lungs: Clear to auscultation, breath sounds equal bilaterally, chest nontender. Heart: S1S2, regular rate and rhythm without overt murmur Abdomen: Soft, nondistended, nontender. Negative for masses. Negative for costovertebral tenderness. Pelvis: Stable nontender. Skin: Intact, warm, dry. No lesions or rashes noted. Extremities: Atraumatic, moves all extremities per self without difficulty or deficits, negative for cords or calf pain. Neurovascular unremarkable. Neuro: Awake, alert, oriented. Cranial nerves II through XII unremarkable. Cerebellum unremarkable. Motor and sensory unremarkable throughout. Exam nonfocal. Notes: Discussed doing repeat labs and imaging, he declines. He states that he is comfortable being discharged home with close follow-up with urology. We'll give him some medication while here along with a prescription to fill tomorrow as pharmacy is closed. Supportive care measures were reviewed and discussed. Voices understanding and is agreeable to plan of care. Denies any further questions or concerns at this time. Diagnostics: None Therapeutics: Sofia Ibrahim Prescription: Wesley Impression: Encounter for pain management Kidney stone Plan: 1. Continue taking your Flomax as directed. Tylenol and/or ibuprofen as needed for pain management. Wesley for moderate to severe pain. This medication may cause drowsiness a do not take it will driving her needing to be functioning outside the house. 2. Follow up with Urology as we discussed. 3. Return to the ED as needed and as discussed. Definitive disposition and diagnosis as appropriate pending reevaluation and review of above. - Related Data Allergies Allergy/AdvReac Type Severity Reaction Status Date / Time No Known Allergies Allergy Verified 03/14/18 11:53 Home Meds: Home Meds Losartan [Cozaar] 100 mg PO BEDTIME 01/19/18 [History] amLODIPine Besylate [Norvasc] 5 mg PO BEDTIME 01/19/18 [History] atorvaSTATin [Lipitor] 10 mg PO BEDTIME 01/19/18 [History] Cetirizine [ZyrTEC] 10 mg PO BEDTIME 03/14/18 [History] Hydrocodone/Acetaminophen [Lorcet 5-325 mg Tablet] 1 tab PO ASDIRECTED PRN 03/14 [History] Tamsulosin [Flomax] 0.4 mg PO BEDTIME 03/14/18 [History] Past Medical History HEENT History: Reports: Allergic Rhinitis Cardiovascular History: Reports: High Cholesterol, Hypertension Respiratory History: Reports: None Gastrointestinal History: Reports: None Genitourinary History: Reports: Renal Calculus Other Genitourinary History: has passes several stones Musculoskeletal History: Reports: Fracture Other Musculoskeletal History: hx of fx toe Neurological History: Reports: Migraines Psychiatric History: Reports: None Endocrine/Metabolic History: Reports: Obesity/BMI 30+ Hematologic History: Reports: None Immunologic History: Reports: None Oncologic (Cancer) History: Reports: None Dermatologic History: Reports: None - Infectious Disease History Infectious Disease History: Reports: None - Past Surgical History Neurological Surgical History: Reports: Laminectomy, Lumbar Spine Social & Family History - Family History Family Medical History: Noncontributory - Caffeine Use Caffeine Use: Reports: Soda ED ROS GENERAL - Review of Systems Review Of Systems: ROS reveals no pertinent complaints other than HPI. ED EXAM, RENAL/ - Physical Exam Exam: See Below (See dictation) Departure - Departure Time of Disposition: 21:44 Disposition: Home, Self-Care 01 Clinical Impression: Encounter for pain management, Kidney stone - Discharge Information Referrals: PCP,None [Primary Care Provider] - Additional Instructions: The following information is given to patients seen in the emergency department who are being discharged to home. This information is to outline your options for follow-up care. We provide all patients seen in our emergency department with a follow-up referral. The need for follow-up, as well as the timing and circumstances, are variable depending upon the specifics of your emergency department visit. If you don't have a primary care physician on staff, we will provide you with a referral. We always advise you to contact your personal physician following an emergency department visit to inform them of the circumstance of the visit and for follow-up with them and/or the need for any referrals to a consulting specialist. The emergency department will also refer you to a specialist when appropriate. This referral assures that you have the opportunity for follow-up care with a specialist. All of these measure are taken in an effort to provide you with optimal care, which includes your follow-up. Under all circumstances we always encourage you to contact your private physician who remains a resource for coordinating your care. When calling for follow-up care, please make the office aware that this follow-up is from your recent emergency room visit. If for any reason you are refused follow-up, please contact the [facility] Emergency Department at and asked to speak to the emergency department charge nurse. [facility] [address] [place] [id number] [facility] [address] [place] [id number] [facility] - Urology [address] [place] [address] 1. Continue taking your Flomax as directed. Tylenol and/or ibuprofen as needed for pain management. Wesley for moderate to severe pain. This medication may cause drowsiness a do not take it will driving her needing to be functioning outside the house. 2. Follow up with Urology as we discussed. 3. Return to the ED as needed and as discussed.
[2018-09-08] MEDS ORDERED: Ondansetron 4 MG Tab.DIS PO ONE (21:46)
[2018-09-08] MEDS ORDERED: Acetaminophen/HYDROcodone 325-5 MG Tab PO ONE (21:46)
[2018-09-08 23:20] VITALS: BP 158/101
== END 2018-09-08 22:06 | disposition home or self-care (01) ==
LOC: MW.ED 21:23
DX: N13.2 Hydronephrosis with renal and ureteral calculous obstruction (principal); I10 Essential (primary) hypertension; E66.9 Obesity, unspecified; E78.00 Pure hypercholesterolemia, unspecified; Z79.899 Other long term (current) drug therapy; Z68.34 Body mass index [BMI] 34.0-34.9, adult
CPT/HCPCS: 99283; A9270

== ENCOUNTER 2018-09-14 01:10 | Emergency (ER) | payer BC ==
[2018-09-14] MEDS ORDERED: Ketorolac 30 MG/ML SDV IVPUSH ONE (01:25)
[2018-09-14] MEDS ORDERED: Ketorolac 30 MG/ML SDV ONE (01:27)
[2018-09-14] MEDS ORDERED: Acetaminophen/HYDROcodone 325-10 MG Tab ONE (01:27)
[2018-09-14] MEDS ORDERED: Acetaminophen/HYDROcodone 325-10 MG Tab PO ONE (01:29)
[2018-09-14] MEDS ORDERED: Sodium Chloride 0.9% 1,000 ML IV SCH (01:30)
--- NOTE | 2018-09-14 01:30 | EDM.PDOC ---
ED HPI GENERAL MEDICAL PROBLEM - General Chief Complaint: Genitourinary Problem Stated Complaint: KIDNEY STONE Time Seen by Provider: 09/14/18 01:20 - History of Present Illness INITIAL COMMENTS - FREE TEXT/NARRATIVE: HISTORY AND PHYSICAL: History of present illness: Patient 47-year-old male was seen recently for a left-sided kidney stone he also had follow-up with urology he was unable to get his medications for pain management and returns now with left-sided renal colic he says no nausea vomiting fever chills or other complaints Review of systems: As per history of present illness and below otherwise all systems reviewed and negative. Past medical history: As per history of present illness and as reviewed below otherwise noncontributory. Surgical history: As per history of present illness and as reviewed below otherwise noncontributory. Social history: No reported history of drug or alcohol abuse. Family history: As per history of present illness and as reviewed below otherwise noncontributory. Physical exam: HEENT: Atraumatic, normocephalic, pupils reactive, negative for conjunctival pallor or scleral icterus, mucous membranes moist, throat clear, neck supple, nontender, trachea midline. Lungs: Clear to auscultation, breath sounds equal bilaterally, chest nontender. Heart: S1S2, regular, negative for clicks, rubs, or JVD. Abdomen: Soft, nondistended, nontender. Negative for masses or hepatosplenomegaly. Left-sided costovertebral tenderness. Pelvis: Stable nontender. Genitourinary: Deferred. Rectal: Deferred. Extremities: Atraumatic, negative for cords or calf pain. Neurovascular unremarkable. Neuro: Awake, alert, oriented. Cranial nerves II through XII unremarkable. Cerebellum unremarkable. Motor and sensory unremarkable throughout. Exam nonfocal. Diagnostics: None Therapeutics: Saline 1 L bolus Toradol 30mg IV hydrocodone 10 mg by mouth Impression: #1 history of left-sided ureterolithiasis #2 renal colic Definitive disposition and diagnosis as appropriate pending reevaluation and review of above. left abdomen/flank Pain Score (Numeric/FACES): 8 - Related Data Allergies Allergy/AdvReac Type Severity Reaction Status Date / Time No Known Allergies Allergy Verified 09/14/18 01:14 Home Meds: Home Meds Losartan [Cozaar] 100 mg PO BEDTIME 01/19/18 [History] amLODIPine Besylate [Norvasc] 5 mg PO BEDTIME 01/19/18 [History] atorvaSTATin [Lipitor] 10 mg PO BEDTIME 01/19/18 [History] Cetirizine [ZyrTEC] 10 mg PO BEDTIME 03/14/18 [History] Hydrocodone/Acetaminophen [Lorcet 5-325 mg Tablet] 1 tab PO ASDIRECTED PRN 03/14 [History] Tamsulosin [Flomax] 0.4 mg PO BEDTIME 03/14/18 [History] Past Medical History HEENT History: Reports: Allergic Rhinitis Cardiovascular History: Reports: High Cholesterol, Hypertension Respiratory History: Reports: None Gastrointestinal History: Reports: None Genitourinary History: Reports: Renal Calculus Other Genitourinary History: has passes several stones Musculoskeletal History: Reports: Fracture Other Musculoskeletal History: hx of fx toe Neurological History: Reports: Migraines Psychiatric History: Reports: None Endocrine/Metabolic History: Reports: Obesity/BMI 30+ Hematologic History: Reports: None Immunologic History: Reports: None Oncologic (Cancer) History: Reports: None Dermatologic History: Reports: None - Infectious Disease History Infectious Disease History: Reports: None - Past Surgical History Neurological Surgical History: Reports: Laminectomy, Lumbar Spine Social & Family History - Family History Family Medical History: Noncontributory - Tobacco Use Smoking Status *Q: Never Smoker - Caffeine Use Caffeine Use: Reports: Soda - Recreational Drug Use Recreational Drug Use: No ED ROS GENERAL - Review of Systems Review Of Systems: ROS reveals no pertinent complaints other than HPI. ED EXAM, GENERAL - Physical Exam Exam: See Below (See dictation) Course - Vital Signs Text/Narrative:: Discussed with patient at length diagnostic testing in light of the recent extensive testing he had an urology follow-up at this time patient defers all other than IV fluids and pain medication. Last Recorded V/S: Last Vital Signs Temp 36.4 C 09/14/18 01:14 Pulse 96 09/14/18 01:14 Resp 18 09/14/18 01:14 BP 166/112 H 09/14/18 01:14 Pulse Ox 96 09/14/18 01:14 - Orders/Labs/Meds Orders: Active Orders 24 hr Category Date Time Status Ketorolac [Toradol] Med 09/14/18 01:25 Once 30 mg IVPUSH ONETIME ONE Sodium Chloride 0.9% [Normal Saline] 1,000 ml Med 09/14/18 01:30 Active IV ASDIRECTED Medication Orders Sodium Chloride (Normal Saline) 1,000 mls @ 999 mls/hr IV ASDIRECTED VICENTE Meds: Medications Generic Name Dose Route Start Last Admin Trade Name Leena PRN Reason Stop Dose Admin Sodium Chloride 1,000 mls @ 999 mls/hr 09/14/18 01:30 Normal Saline IV ASDIRECTED VICENTE Departure - Departure Time of Disposition: :29 Disposition: Home, Self-Care 01 Condition: Good Clinical Impression: Renal colic on left side - Discharge Information Referrals: Luís Black MD [Primary Care Provider] - Additional Instructions: The following information is given to patients seen in the emergency department who are being discharged to home. This information is to outline your options for follow-up care. We provide all patients seen in our emergency department with a follow-up referral. The need for follow-up, as well as the timing and circumstances, are variable depending upon the specifics of your emergency department visit. If you don't have a primary care physician on staff, we will provide you with a referral. We always advise you to contact your personal physician following an emergency department visit to inform them of the circumstance of the visit and for follow-up with them and/or the need for any referrals to a consulting specialist. The emergency department will also refer you to a specialist when appropriate. This referral assures that you have the opportunity for followup care with a specialist. All of these measure are taken in an effort to provide you with optimal care, which includes your followup. Under all circumstances we always encourage you to contact your private physician who remains a resource for coordinating your care. When calling for followup care, please make the office aware that this follow-up is from your recent emergency room visit. If for any reason you are refused follow-up, please contact the [facility] emergency department at and asked to speak to the emergency department charge nurse. Flomax hydrocodone Zofran as prescribed follow-up Dr. Kincaid as discussed return as needed as discussed - My Orders Last 24 Hours: My Active Orders 09/14/18 01:25 Ketorolac [Toradol] 30 mg IVPUSH ONETIME ONE 09/14/18 01:30 Sodium Chloride 0.9% [Normal Saline] 1,000 ml IV ASDIRECTED - Assessment/Plan Last 24 Hours: My Active Orders 09/14/18 01:25 Ketorolac [Toradol] 30 mg IVPUSH ONETIME ONE 09/14/18 01:30 Sodium Chloride 0.9% [Normal Saline] 1,000 ml IV ASDIRECTED
[2018-09-14] MEDS ORDERED: Tamsulosin 0.4 MG Cap.ER PO ONE (02:27)
[2018-09-14] MEDS ORDERED: Ondansetron 4 MG/2 ML SDV IVPUSH ONE (02:27)
[2018-09-14] MEDS ORDERED: HYDROmorphone 1 MG/ML Syringe IVPUSH ONE (02:27)
--- NOTE | 2018-09-14 03:08 | CT ---
INDICATION: Left flank pain TECHNIQUE: CT abdomen and pelvis without contrast. COMPARISON: Abdomen and pelvis CT 09/07/2018 FINDINGS: Lower chest: Minimal bibasilar discoid atelectasis. Liver: Normal in size and attenuation. No masses. Gallbladder and bile ducts: No stones or inflammation. No biliary dilatation. Pancreas: Unremarkable. No mass or inflammation. Spleen: Normal in size. No masses. Adrenal glands: Normal in size. No nodules. Kidneys: Bilateral nephrolithiasis without evidence of a right ureteral stone or hydronephrosis. There is inflammatory fat stranding surrounding the left kidney with mild left hydronephrosis. At the level of the distal ureter there is a 6 x 5 millimeter obstructing stone. GI tract: Unremarkable. Normal in caliber. No sign of mass or inflammation. Normal appendix. Vasculature: Unremarkable. Lymph nodes: No lymphadenopathy. Abdominal wall/Omentum/Peritoneum: Unremarkable. No sign of mass or infiltration. No free air or significant free fluid. Pelvis: Unremarkable. No pelvic masses. Bones: Unremarkable for age. IMPRESSION: Nephrolithiasis with mild left hydronephrosis. Obstructing distal left ureteral stone measuring 6 x 5 millimeters. Compared to the prior examination there has been interval development of the hydronephrosis with transit of the stone from the level of the proximal ureter to the distal ureter just above the acetabular level. Please note that all CT scans at this facility use dose modulation, iterative reconstruction, and/or weight-based dosing when appropriate to reduce radiation dose to as low as reasonably achievable. Dictated by Michael Torres MD @ Sep 14 2018 3:02AM Signed by Dr. Michael Torres @ Sep 14 2018 3:05AM
[2018-09-14 03:12] LABS: BLOOD UREA NITROGEN,BUN 20 mg/dL (7.0-18.0); CARBON DIOXIDE,CO2 22.8 mmol/L (21.0-32.0); CHLORIDE,CL 105 mmol/L (98-107); GLUCOSE RANDOM 163 mg/dL (74-106); POTASSIUM,K 3.9 mmol/L (3.5-5.1); SODIUM,NA 138 mmol/L (136-148)
[2018-09-14 03:26] VITALS: BP 159/97; PULSE 68
== END 2018-09-14 03:36 | disposition home or self-care (01) ==
LOC: MW.ED 01:10
DX: N13.2 Hydronephrosis with renal and ureteral calculous obstruction (principal); I10 Essential (primary) hypertension; E78.00 Pure hypercholesterolemia, unspecified; E66.9 Obesity, unspecified; Z68.30 Body mass index [BMI] 30.0-30.9, adult; Z87.442 Personal history of urinary calculi; Z79.83 Long term (current) use of bisphosphonates; Z79.899 Other long term (current) drug therapy
CPT/HCPCS: 36415; 74176; 80053; 81001; 85025; 96361; 96374; 96375; 99284; A9270; J1170; J1885; J2405; J7040; 99283

== ENCOUNTER 2019-05-24 21:34 | Emergency (ER) | payer BC ==
[2019-05-24] MEDS ORDERED: Acetaminophen/HYDROcodone 325-5 MG Tab PO ONE (21:40)
--- NOTE | 2019-05-24 21:53 | EDM.PDOC ---
ED HPI GENERAL MEDICAL PROBLEM - General Chief Complaint: Back Pain or Injury Stated Complaint: KIDNEY STONES Time Seen by Provider: 05/24/19 21:50 Source of Information: Reports: Patient - History of Present Illness INITIAL COMMENTS - FREE TEXT/NARRATIVE: The patient is a 48-year-old male presents to the ER secondary to back pain bilaterally that intermittently radiates to his abdomen that is consistent with renal colic. The patient has a urologist and he states that he passed a kidney stone a couple of days ago but he feels like he is passing even more. He is having blood in his urine as well. No fevers, he does have some intermittent nausea and vomiting secondary to the pain. No other complaints. lower back Pain Score (Numeric/FACES): 9 - Related Data Allergies Allergy/AdvReac Type Severity Reaction Status Date / Time No Known Allergies Allergy Verified 05/24/19 21:41 Home Meds: Home Meds Losartan [Cozaar] 100 mg PO BEDTIME 01/19/18 [History] amLODIPine Besylate [Norvasc] 5 mg PO BEDTIME 01/19/18 [History] atorvaSTATin [Lipitor] 10 mg PO BEDTIME 01/19/18 [History] Cetirizine [ZyrTEC] 10 mg PO BEDTIME 03/14/18 [History] Tamsulosin [Flomax] 0.4 mg PO BEDTIME 03/14/18 [History] Past Medical History HEENT History: Reports: Allergic Rhinitis Cardiovascular History: Reports: High Cholesterol, Hypertension Respiratory History: Reports: None Gastrointestinal History: Reports: None Genitourinary History: Reports: Renal Calculus Other Genitourinary History: has passes several stones Musculoskeletal History: Reports: Fracture Other Musculoskeletal History: hx of fx toe Neurological History: Reports: Migraines Psychiatric History: Reports: None Endocrine/Metabolic History: Reports: Obesity/BMI 30+ Hematologic History: Reports: None Immunologic History: Reports: None Oncologic (Cancer) History: Reports: None Dermatologic History: Reports: None - Infectious Disease History Infectious Disease History: Reports: Chicken Pox - Past Surgical History HEENT Surgical History: Reports: None Cardiovascular Surgical History: Reports: None Male Surgical History: Reports: Lithotripsy ([facility]) Neurological Surgical History: Reports: Laminectomy, Lumbar Spine Musculoskeletal Surgical History: Reports: None Social & Family History - Family History Family Medical History: Noncontributory - Tobacco Use Smoking Status *Q: Never Smoker Second Hand Smoke Exposure: No - Caffeine Use Caffeine Use: Reports: Soda - Recreational Drug Use Recreational Drug Use: No ED ROS GENERAL - Review of Systems Review Of Systems: See Below (Positive for bilateral flank pain, fevers, negative for dysuria, positive hematuria, positive for nausea vomiting, all other Positives and pertinent negatives as per HPI. All other pertinent systems were reviewed and are negative) ED EXAM,LOWER BACK PAIN/INJURY - Physical Exam Exam: See Below Text/Narrative:: Constitutional: No acute distress, Non-toxic appearance. HEENT: Normocephalic, Atraumatic, EOMI Neck: Normal range of motion, No stridor, trachea midline Respiratory: No respiratory distress, No tachypnea Cardiovascular: Deferred Gastrointestinal: Deferred Genital / Urinary: Deferred Musculoskeletal: All four extremities present and atraumatic Back: FROM Integument: Warm, Dry, Color is ethnicity appropriate, No rash. Neuro: Alert, Awake, No focal deficits noted Psych: Affect, Judgement, mood normal Course - Vital Signs Text/Narrative:: The patient is nontoxic in appearance and he has had kidney stones intermittently for years. This feels exactly like previous episodes of renal colic without any complicating factors such as fevers, chills, or any systemic symptoms. He would just like something for the nausea and the pain so he will be given a dose of Alexandria and Zofran in the ER and a prescription for 10 tablets of Zofran 4 mg ODT tablets and ten 5 mg Alexandria tablets and he can follow-up with urology. Last Recorded V/S: Last Vital Signs Temp 35.9 C L 05/24/19 21:35 Pulse 66 05/24/19 21:35 Resp 18 05/24/19 21:35 BP 192/117 H 05/24/19 21:35 Pulse Ox 97 05/24/19 21:35 - Orders/Labs/Meds Meds: Medications Discontinued Medications Generic Name Dose Route Start Last Admin Trade Name Freq PRN Reason Stop Dose Admin Hydrocodone Bitart/Acetaminophen 2 tab 05/24/19 21:40 Alexandria 325-5 Mg PO 05/24/19 21:41 ONETIME ONE Departure - Departure Time of Disposition: 21:52 Disposition: Home, Self-Care 01 Condition: Good Clinical Impression: Renal colic - Discharge Information Instructions: Kidney Stones, [id number] Referrals: PCP,None [Primary Care Provider] - Magali Kincaid MD [Physician] - Sepsis Event Note - Evaluation Sepsis Screening Result: No Definite Risk - Focused Exam Vital Signs: Vital Signs Temp Pulse Resp BP Pulse Ox 05/24/19 21:35 35.9 C L 66 18 192/117 H 97 Date Exam was Performed: 05/24/19 Time Exam was Performed: 21:50
[2019-05-24 22:28] VITALS: BP 180/100; PULSE 60
== END 2019-05-24 22:20 | disposition home or self-care (01) ==
LOC: MW.ED 21:34
DX: N23 Unspecified renal colic (principal); I10 Essential (primary) hypertension; E78.00 Pure hypercholesterolemia, unspecified; E66.9 Obesity, unspecified; Z68.34 Body mass index [BMI] 34.0-34.9, adult; Z79.899 Other long term (current) drug therapy
CPT/HCPCS: 99283; A9270; 99282

== ENCOUNTER 2019-05-30 06:38 | Day surgery (SDC) | payer BC ==
[~2019-05-30 06:38] MED LIST: Lactated Ringers 1,000 ML IV SCH; Sodium Chloride 0.9% 10 ML SDV IV PRN; Sodium Chloride 0.9% 10 ML Syringe FLUSH PRN; Sodium Chloride 0.9% 2.5 ML Syringe FLUSH PRN; ceFAZolin 2 GM in Premix Bag 1 BAG IV ONE
[2019-05-30] MEDS ORDERED: Lidocaine 2% 5 ML SDV ONE (07:08)
[2019-05-30] MEDS ORDERED: Glycopyrrolate 0.2 MG/ML SDV ONE (07:08)
[2019-05-30] MEDS ORDERED: Midazolam 1 MG/ML 2 ML SDV ONE (07:08)
[2019-05-30] MEDS ORDERED: Ondansetron 4 MG/2 ML SDV ONE (07:08)
[2019-05-30] MEDS ORDERED: Propofol 200 MG/20 ML SDV ONE (07:08)
[2019-05-30] MEDS ORDERED: fentaNYL 250 MCG/5 ML SDV ONE (07:09)
[2019-05-30] MEDS ORDERED: Rocuronium 100 MG/10 ML Syringe ONE (07:09)
--- NOTE | 2019-05-30 07:11 | PCM.PREANE ---
Preanesthetic Assessment - Anesthesia/Transfusion/Family Hx Anesthesia History: Prior Anesthesia Without Reaction Family History of Anesthesia Reaction: No Transfusion History: No Prior Transfusion(s) Intubation History: Unknown - Review of Systems General: No Symptoms Pulmonary: No Symptoms Cardiovascular: No Symptoms Gastrointestinal: No Symptoms Neurological: No Symptoms Other: Reports: None - Physical Assessment ASA Class: 2 Mental Status: Alert & Oriented x3 Airway Class: Mallampati = 2 Dentition: Reports: Normal Dentition (easy bleeding gums) Thyro-Mental Finger Breadths: 3 Mouth Opening Finger Breadths: 3 ROM/Head Extension: Full Lungs: Clear to Auscultation, Normal Respiratory Effort Cardiovascular: Regular Rate, Regular Rhythm - Allergies Allergies/Adverse Reactions: Allergies Allergy/AdvReac Type Severity Reaction Status Date / Time No Known Allergies Allergy Verified 05/24/19 21:41 - Blood Blood Available: No - Anesthesia Plan Pre-Op Medication Ordered: None - Acknowledgements Anesthesia Type Planned: General Anesthesia Pt an Appropriate Candidate for the Planned Anesthesia: Yes Alternatives and Risks of Anesthesia Discussed w Pt/Guardian: Yes Pt/Guardian Understands and Agrees with Anesthesia Plan: Yes PreAnesthesia Questionnaire HEENT History: Reports: Allergic Rhinitis Cardiovascular History: Reports: High Cholesterol, Hypertension Respiratory History: Reports: None Gastrointestinal History: Reports: None Genitourinary History: Reports: Renal Calculus Other Genitourinary History: has passes several stones Musculoskeletal History: Reports: Fracture Other Musculoskeletal History: hx of fx toe Neurological History: Reports: Migraines Psychiatric History: Reports: None Endocrine/Metabolic History: Reports: Obesity/BMI 30+ Hematologic History: Reports: None Immunologic History: Reports: None Oncologic (Cancer) History: Reports: None Dermatologic History: Reports: None - Infectious Disease History Infectious Disease History: Reports: Chicken Pox - Past Surgical History HEENT Surgical History: Reports: None Cardiovascular Surgical History: Reports: None Male Surgical History: Reports: Lithotripsy (ESWL) (last year) Neurological Surgical History: Reports: Laminectomy, Lumbar Spine Musculoskeletal Surgical History: Reports: None - HOME MEDS Home Medications: Home Meds Losartan [Cozaar] 100 mg PO BEDTIME 01/19/18 [History] amLODIPine Besylate [Norvasc] 5 mg PO BEDTIME 01/19/18 [History] atorvaSTATin [Lipitor] 10 mg PO BEDTIME 01/19/18 [History] Cetirizine [ZyrTEC] 10 mg PO BEDTIME 03/14/18 [History] Tamsulosin [Flomax] 0.4 mg PO BEDTIME 03/14/18 [History] - CURRENT (IN HOUSE) MEDS Current Meds: Current Medications Lactated Ringer's (Ringers, Lactated) 1,000 mls @ 100 mls/hr IV ASDIRECTED VICENTE Sodium Chloride (Saline Flush) 10 ml FLUSH ASDIRECTED PRN PRN Reason: Keep Vein Open Sodium Chloride (Saline Flush) 2.5 ml FLUSH ASDIRECTED PRN PRN Reason: Keep Vein Open Sodium Chloride (Normal Saline) 10 ml IV ASDIRECTED PRN PRN Reason: IV Use Discontinued Medications Cefazolin Sodium/Dextrose 2 gm (/ Premix) 50 mls @ 100 mls/hr IV ONCALL ONE Stop: 05/30/19 00:30
[2019-05-30] MEDS ORDERED: Iopamidol 200-M 10 ML vial ITHECAL ONE (07:46)
[2019-05-30] MEDS ORDERED: Succinylcholine/Sod PF 100 MG/5 ML SYRINGE IV ONE (08:10)
[2019-05-30] MEDS ORDERED: Atropine 0.1 MG/ML 10 ML Syringe IVPUSH PRN ×2 (08:56)
[2019-05-30] MEDS ORDERED: EPINEPHrine 1:10,000 1 MG/10 ML Syringe IVPUSH PRN (08:56)
[2019-05-30] MEDS ORDERED: 50% Dextrose in Water 50 ML Syringe IVPUSH PRN (08:56)
[2019-05-30] MEDS ORDERED: fentaNYL 100 MCG/2 ML SDV IVPUSH PRN (08:56)
[2019-05-30] MEDS ORDERED: Naloxone 0.4 MG/ML Syringe IVPUSH PRN (08:56)
[2019-05-30] MEDS ORDERED: Albuterol 0.083% 2.5 MG/3 ML Neb Soln NEB PRN (08:56)
--- NOTE | 2019-05-30 10:21 | PCM.POSTAN ---
POST ANESTHESIA ASSESSMENT - MENTAL STATUS Mental Status: Alert, Oriented - VITAL SIGNS Vital Signs: Last Vital Signs Temp 36.1 C 05/30/19 10:00 Pulse 80 05/30/19 10:00 Resp 14 05/30/19 10:00 BP 187/108 H 05/30/19 10:00 Pulse Ox 97 05/30/19 10:00 - RESPIRATORY Respiratory Status: Respiratory Rate WNL, Airway Patent, O2 Saturation Stable - CARDIOVASCULAR CV Status: Pulse Rate WNL, Blood Pressure Stable - GASTROINTESTINAL GI Status: No Symptoms - PAIN Pain Score: 0 - POST OP HYDRATION Hydration Status: Adequate & Stable - OBSERVATIONS Free Text/Narrative:: No anesthesia problems
[2019-05-30] MEDS ORDERED: Acetaminophen/HYDROcodone 325-10 MG Tab PO ONE (10:40)
[2019-05-30 11:11] VITALS: BP 146/84; PULSE 78
--- NOTE | 2019-05-30 12:04 | PCM48HPAN ---
Post Anesthesia Note - EVALUATION WITHIN 48HRS OF ANESTHETIC Vital Signs in Normal Range: Yes Patient Participated in Evaluation: Yes Respiratory Function Stable: Yes Airway Patent: Yes Cardiovascular Function Stable: Yes Hydration Status Stable: Yes Pain Control Satisfactory: Yes Nausea and Vomiting Control Satisfactory: Yes Mental Status Recovered: Yes Vital Signs: Last Vital Signs Temp 36.1 C 05/30/19 10:00 Pulse 78 05/30/19 11:00 Resp 16 05/30/19 10:45 BP 146/84 H 05/30/19 11:00 Pulse Ox 97 05/30/19 11:00 - COMMENTS/OBSERVATIONS Free Text/Narrative:: No anesthesia problems
--- NOTE | 2019-05-30 13:02 | OR ---
SURGEON: Magali Kincaid M.D. DATE OF PROCEDURE: 05/30/2019 PREOPERATIVE DIAGNOSIS: A 7.2 mm right upper ureteral stone with obstruction. POSTOPERATIVE DIAGNOSIS: A 7.2 mm right upper ureteral stone with obstruction. OPERATION: Extracorporeal shock wave lithotripsy. HISTORY: A 48-year-old, he was seen in the office yesterday. He had been in the emergency room 4 days prior had a KUB that showed a stone in the right upper ureter or proximally in the kidney. Continued to have pain, came to the office. I did a CT scan to confirm the presence of the stone which was still in the same position and there was slight density on the KUB. The patient had extracorporeal shock wave lithotripsy last year for stones on both sides, which responded well to lithotripsy. He is here to have extracorporeal shock wave lithotripsy. DESCRIPTION: The patient was given general anesthesia. He is on a lithotripsy table. Position of the patient was adjusted, so the stone could be treated and eventually received a total of 2400 shocks. At the end of the treatment and throughout the treatment, it was obvious that the stone is responding well to the treatment. The size of the stone changed significantly. With that done, the procedure was terminated. The patient was sent to recovery room in good condition. He will be sent home on Flomax and Lorcet, and I will see him again in 2 weeks or sooner if he is still having pain. NIDIA / RAGHAV /[id number]
[2019-05-30] MEDS ORDERED: amLODIPine 5 MG Tab PO SCH (21:00)
[2019-05-30] MEDS ORDERED: Losartan 50 MG Tab PO SCH (21:00)
[2019-05-30] MEDS ORDERED: Cetirizine 10 MG Tab PO SCH (21:00)
[2019-05-30] MEDS ORDERED: Tamsulosin 0.4 MG Cap.ER PO SCH (21:00)
[2019-05-30] MEDS ORDERED: atorvaSTATin 10 MG Tab PO SCH (21:00)
== END 2019-05-30 11:45 | disposition home or self-care (01) ==
LOC: MW.SDS 06:38
PROVIDERS: ATTEND Urology
DX: N20.1 Calculus of ureter (principal); E78.00 Pure hypercholesterolemia, unspecified; I10 Essential (primary) hypertension; E66.9 Obesity, unspecified; Z87.442 Personal history of urinary calculi; Z98.890 Other specified postprocedural states; Z68.35 Body mass index [BMI] 35.0-35.9, adult
CPT/HCPCS: 50590; A9270; J0330; J2001; J2250; J2405; J2704; J3010; J3490; J7120; Q9966

== ENCOUNTER 2019-12-01 10:13 | Emergency (ER) | payer BC ==
[2019-12-01] MEDS ORDERED: Ketorolac 15 MG/ML SDV IM ONE (10:25)
[2019-12-01] MEDS ORDERED: Diazepam 2 MG Tab PO ONE (10:25)
[2019-12-01] MEDS ORDERED: Acetaminophen 325 MG Tab PO ONE (10:26)
--- NOTE | 2019-12-01 10:43 | EDM.PDOC ---
ED HPI GENERAL MEDICAL PROBLEM - General Chief Complaint: Neuro Symptoms/Deficits Stated Complaint: LEFT ARM PAIN,TINGLING IN FINGERS Time Seen by Provider: 12/01/19 10:17 - History of Present Illness INITIAL COMMENTS - FREE TEXT/NARRATIVE: HISTORY AND PHYSICAL: History of present illness: This otherwise healthy 49-year-old male presents emergency department after falling asleep a week ago with his head tilted sideways sitting up in a chair after a long day/night at work. He woke up because he had a choking episode secondary to having hard candy in his mouth when he fell asleep. He coughed several times but was able to pass his secretions without otherwise any other difficulty and noticed he had some paresthesias in his left upper extremity with pain from his neck down his shoulder and into his arm along the 5th through 7th cervical nerve distributions. This has not got better over the past week. He denies any other neuro symptoms, has no headache, does not have difficulty ambulating and is otherwise been healthy. He did try and get better by going to a chiropractor cracked his neck and there is no change in symptoms after this. No other associated signs or symptoms. No other modifying, aggravating or alleviating factors. Review of systems: A 10-point review of systems, other than pertinent positives and negatives as stated per HPI, is otherwise negative. Past medical history: As per history of present illness and as reviewed below otherwise noncontributory. Surgical history: As per history of present illness and as reviewed below otherwise noncontributory. Social history: No reported history of drug or alcohol abuse. Family history: As per history of present illness and as reviewed below otherwise noncontributory. Physical exam: VITAL SIGNS: Reviewed. GENERAL: Mildly anxious about his condition but nontoxic and otherwise healthy appearing HEAD: No signs of head trauma. EYES: Pupils are equal. Extraocular motions intact. EARS: Hearing grossly intact. MOUTH: Oropharynx is normal. NECK: No adenopathy, no JVD. CHEST: Chest with clear breath sounds bilaterally. No wheezes, rales, or rhonchi. CARDIAC: Regular rate and rhythm. Normal S1 and S2, without murmurs, gallops, or rubs. VASCULAR: Peripheral pulses normal and equal in all extremities. ABDOMEN: Soft, without detectable tenderness. No sign of distention. No rebound or guarding, and no masses palpated. MUSCULOSKELETAL: Good range of motion of all major joints. Extremities without clubbing, cyanosis or edema. NEUROLOGIC EXAM: Alert and oriented x 3. Speech normal. Follows commands. Cranial nerves II through XII are intact. He does have paresthesias and decreased sensation in the C5-C7 dermatomal distribution. Minimal change in hand overhead irrigator is present. Worsening symptoms with downward pressure on the head or with turning the head and neck while there is downward pressure. This re- creates the height of his concerns/symptoms. PSYCHIATRIC: Mood normal. SKIN: No rash or lesions. Initial Differential Diagnosis & Plan: Cervical radiculopathy, dissection, fracture Likely this is a cervical radiculopathy. Does not seem to have axillary nerve involvement. With recreation of downward pressure on the head I feel that this most likely represents a cervical pathology not brachial plexus or axillary. Will obtain a CT scan. I will write the patient for an outpatient MRI to be done as soon as possible. Definitive disposition and diagnosis as appropriate pending reevaluation and review of above. left arm Pain Score (Numeric/FACES): 6 - Related Data Allergies Allergy/AdvReac Type Severity Reaction Status Date / Time No Known Allergies Allergy Verified 12/01/19 10:28 Home Meds: Home Meds Losartan [Cozaar] 100 mg PO BEDTIME 01/19/18 [History] amLODIPine Besylate [Norvasc] 5 mg PO BEDTIME 01/19/18 [History] atorvaSTATin [Lipitor] 10 mg PO BEDTIME 01/19/18 [History] Cetirizine [ZyrTEC] 10 mg PO BEDTIME 03/14/18 [History] Tamsulosin [Flomax] 0.4 mg PO BEDTIME 03/14/18 [History] Gabapentin [Neurontin] 300 mg PO BID 30 Days #60 cap 12/01/19 [Rx] predniSONE [Prednisone] 50 mg PO DAILY 5 Days #5 tablet 12/01/19 [Rx] Past Medical History HEENT History: Reports: Allergic Rhinitis Cardiovascular History: Reports: High Cholesterol, Hypertension Respiratory History: Reports: None Gastrointestinal History: Reports: None Genitourinary History: Reports: Renal Calculus Other Genitourinary History: has passes several stones Musculoskeletal History: Reports: Fracture Other Musculoskeletal History: hx of fx toe Neurological History: Reports: Migraines Psychiatric History: Reports: None Endocrine/Metabolic History: Reports: Obesity/BMI 30+ Hematologic History: Reports: None Immunologic History: Reports: None Oncologic (Cancer) History: Reports: None Dermatologic History: Reports: None - Infectious Disease History Infectious Disease History: Reports: Chicken Pox - Past Surgical History HEENT Surgical History: Reports: None Cardiovascular Surgical History: Reports: None Male Surgical History: Reports: Lithotripsy (ESWL) (last year) Neurological Surgical History: Reports: Laminectomy, Lumbar Spine Musculoskeletal Surgical History: Reports: None Social & Family History - Family History Family Medical History: Noncontributory - Caffeine Use Caffeine Use: Reports: Soda ED ROS GENERAL - Review of Systems Review Of Systems: See Below (Noted) ED EXAM, UPPER BACK/NECK PAIN - Physical Exam Exam: See Below (noted) Course - Vital Signs Last Recorded V/S: Last Vital Signs Temp 96.6 F L 12/01/19 10:19 Pulse 86 12/01/19 10:19 Resp 20 12/01/19 10:19 BP 182/107 H 12/01/19 10:19 Pulse Ox 97 12/01/19 10:19 - Orders/Labs/Meds Meds: Medications Discontinued Medications Generic Name Dose Route Start Last Admin Trade Name Aashishq PRN Reason Stop Dose Admin Acetaminophen 975 mg 12/01/19 10:26 12/01/19 10:45 Tylenol PO 12/01/19 10:27 975 mg NOW ONE Administration Dexamethasone 10 mg 12/01/19 10:26 12/01/19 10:46 Dexamethasone PO 12/01/19 10:27 10 mg ONETIME ONE Administration Dexamethasone Confirm 12/01/19 10:31 12/01/19 10:46 Dexamethasone Administered 12/01/19 10:32 Not Given Dose 10 mg .ROUTE .STK-MED ONE Diazepam 2 mg 12/01/19 10:25 12/01/19 10:45 Valium PO 12/01/19 10:26 2 mg ONETIME ONE Administration Ketorolac Tromethamine 15 mg 12/01/19 10:25 12/01/19 10:45 Toradol IM 12/01/19 10:26 15 mg ONETIME ONE Administration - Re-Assessments/Exams Free Text/Narrative Re-Assessment/Exam: 12/01/19 11:18 The patient has no evidence of fracture. There is some narrowing/degeneration on the CT consistent with my clinical findings. Likely the cause of the cervical radiculopathy. Given the lack of other neuro symptoms or cranial nerve impairment I feel stroke is highly unlikely. I have arranged for the patient have an outpatient MRI. My diagnostic impression: 1. Cervical radiculopathy C5-C7 dermatomes Home, MRI as outpatient, symptomatic treatment and steroids Departure - Departure Time of Disposition: 11:19 Disposition: Home, Self-Care 01 Clinical Impression: Cervical radiculopathy at C5, Cervical radiculopathy at C6, Cervical radiculopathy at C7 - Discharge Information *PRESCRIPTION DRUG MONITORING PROGRAM REVIEWED*: Not Applicable *COPY OF PRESCRIPTION DRUG MONITORING REPORT IN PATIENT RENETTA: Not Applicable Referrals: Mariposa RYDER [Primary Care Provider] - Forms: ED Department Discharge Additional Instructions: The following information is given to patients seen in the emergency department who are being discharged to home. This information is to outline your options for follow-up care. We provide all patients seen in our emergency department with a follow-up referral. The need for follow-up, as well as the timing and circumstances, are variable depending upon the specifics of your emergency department visit. If you don't have a primary care physician on staff, we will provide you with a referral. We always advise you to contact your personal physician following an emergency department visit to inform them of the circumstance of the visit and for follow-up with them and/or the need for any referrals to a consulting specialist. The emergency department will also refer you to a specialist when appropriate. This referral assures that you have the opportunity for follow-up care with a specialist. All of these measure are taken in an effort to provide you with optimal care, which includes your follow-up. Thank you for coming to the [facility] urgency department for your care today. It was Dr. Aguilar's pleasure to take care of you. [facility] [address] [place] [address] [id number] [facility] [address] [place] [id number] You have a cervical radiculopathy. We are going to start you on steroids, muscle relaxant, and pain control medicines. We have prescribed or ordered an outpatient MRI. Please make sure you come to this appointment as these appointments are rare and difficult to get. Return to the emergency department for worsening, weakness in your hand or extremity, or any other concerns. Under all circumstances we always encourage you to contact your private physician who remains a resource for coordinating your care. When calling for follow-up care, please make the office aware that this follow-up is from your recent emergency room visit. If for any reason you are refused follow-up, please contact the [facility] Emergency Department at and asked to speak to the emergency department charge nurse. Sepsis Event Note (ED) - Evaluation Sepsis Screening Result: No Definite Risk - Focused Exam Vital Signs: Vital Signs Temp Pulse Resp BP Pulse Ox 12/01/19 10:19 96.6 F L 86 20 182/107 H 97
[2019-12-01] MEDS: Dexamethasone 10 MG/ML SDV ONE ×2 (10:45→10:46)
--- NOTE | 2019-12-01 11:11 | CT ---
INDICATION: Left cervical radiculopathy after sleeping with a kinked/crooked neck. TECHNIQUE: CT cervical spine without IV contrast including axial, coronal, and sagittal images. FINDINGS: No fracture or subluxation in cervical spine. Mild degenerative and hypertrophic changes in the cervical and upper thoracic spine. Small to moderate amounts of fluid and mucosal thickening in the maxillary sinuses greatest inferiorly. Fluid and mucosal thickening in the bilateral ethmoidal sinuses to a lesser degree. Mild increased number of small to upper limits of normal lymph nodes in the neck bilaterally likely inflammatory or reactive in nature. Mild to moderate foraminal narrowing in the cervical spine bilaterally greater on the left likely chronic. Mild mosaic pattern in the mid and upper lungs. Remainder negative. IMPRESSION: 1. No acute fracture or subluxation in cervical spine. 2. Mild degenerative hypertrophic changes in the cervical and upper thoracic spine with mild to moderate foraminal narrowing in the cervical spine and greater on the left. 3. Mild sinusitis. Please note that all CT scans at this facility use dose modulation, iterative reconstruction, and/or weight-based dosing when appropriate to reduce radiation dose to as low as reasonably achievable. Dictated by Marcio Agudelo MD @ Dec 01 2019 11:10AM Signed by Dr. Marcio Agudelo @ Dec 01 2019 11:10AM
[2019-12-01 11:37] VITALS: BP 167/112; PULSE 88
== END 2019-12-01 11:41 | disposition home or self-care (01) ==
LOC: MW.ED 10:13
DX: M54.12 Radiculopathy, cervical region (principal); I10 Essential (primary) hypertension; E78.00 Pure hypercholesterolemia, unspecified; E66.9 Obesity, unspecified; Z68.34 Body mass index [BMI] 34.0-34.9, adult; Z79.899 Other long term (current) drug therapy
CPT/HCPCS: 72125; 96372; 99284; A9270; J1885; J8540; J1100

== ENCOUNTER 2021-02-14 00:58 | Emergency (ER) | payer BC ==
[2021-02-14] MEDS ORDERED: Sodium Chloride 0.9% 2.5 ML Syringe FLUSH PRN (01:07)
[2021-02-14] MEDS ORDERED: Sodium Chloride 0.9% 10 ML Syringe FLUSH PRN (01:07)
[2021-02-14] MEDS ORDERED: Ondansetron 4 MG/2 ML SDV IVPUSH ONE ×2 (01:07→02:56)
[2021-02-14] MEDS ORDERED: fentaNYL 50 MCG/ML SDV IVPUSH ONE ×3 (01:07→02:56)
[2021-02-14] MEDS ORDERED: Sodium Chloride 0.9% 1,000 ML IV ONE ×2 (01:07→02:56)
[2021-02-14] MEDS ORDERED: Ketorolac 30 MG/ML SDV IVPUSH ONE (01:07)
[2021-02-14] MEDS ORDERED: Tamsulosin 0.4 MG Cap.ER PO ONE (01:08)
[2021-02-14 01:46] LABS: POTASSIUM,K 4.1 mmol/L (3.5-5.1)
--- NOTE | 2021-02-14 01:56 | CT ---
INDICATION: Left lower quadrant abdomen pain. History of renal stones.. TECHNIQUE: CT abdomen and pelvis without contrast. COMPARISON: None. FINDINGS: Lower chest: Unremarkable. Liver: Normal in size and attenuation. No suspicious masses. Gallbladder and bile ducts: No stones or inflammation. No biliary dilatation. Pancreas: Unremarkable. No mass or inflammation. Spleen: Normal in size. No masses. Adrenal glands: Normal in size. No nodules. Kidneys: A 4 mm stone in the distal left ureter is causing mild hydronephrosis. Single tiny nonobstructive stone is in the right kidney. GI tract: Unremarkable. Normal in caliber. No sign of mass or inflammation. Normal appendix. Vasculature: Unremarkable. Lymph nodes: No lymphadenopathy. Abdominal wall/Omentum/Peritoneum: Unremarkable. No sign of mass or infiltration. No free air or significant free fluid. Pelvis: Unremarkable. No pelvic masses. Bones: Unremarkable for age. IMPRESSION: 4 mm stone in the distal left ureter causing mild hydronephrosis. Please note that all CT scans at this facility use dose modulation, iterative reconstruction, and/or weight-based dosing when appropriate to reduce radiation dose to as low as reasonably achievable. Dictated by Jeronimo Weiner MD @ 02/14/2021 1:55:11 AM (Electronically Signed)
--- NOTE | 2021-02-14 03:22 | EDM.PDOC ---
ED HPI GENERAL MEDICAL PROBLEM - General Chief Complaint: Flank Pain Stated Complaint: KIDNEY PAIN Time Seen by Provider: 02/14/21 01:02 - History of Present Illness INITIAL COMMENTS - FREE TEXT/NARRATIVE: HISTORY AND PHYSICAL: History of present illness: This is a 50-year-old gentleman with a history significant for kidney stones in the past who presents ER today secondary to noticing hematuria approximately 4 to 5 days ago that was asymptomatic and then this evening started experiencing severe pain to his left lower quadrant and left flank area. Patient reports that he has had multiple stones in the past and has had required lithotripsy for treatment in the past. Patient denies any recent fevers, shakes, chills, vomiting, diarrhea. Patient reports that he does have nausea with his pain. Patient has diaphoresis with the pain. Patient has any cough cold or rhinorrhea. Patient denies any melena or bright red blood per rectum. Patient denies any change in appetite. Patient reports that the pain currently is colicky in nature. Review of systems: As per history of present illness and below otherwise all systems reviewed and negative. Past medical history: As per history of present illness and as reviewed below otherwise noncontributory. Surgical history: As per history of present illness and as reviewed below otherwise noncontributory. Social history: No reported history of drug abuse. Family history: As per history of present illness and as reviewed below otherwise noncontributory. Physical exam: This patient was seen and evaluated during the 2019 SARS-CoV-2 novel coronavirus pandemic period. Community viral transmission is ongoing at time of this encounter and the emergency department is operating under pandemic response procedures. Constitutional: Patient is oriented to person, place, and time. Appears well- developed and well-nourished. No distress. HEENT: Moist mucous membranes Head: Normocephalic and atraumatic Eyes: Right eye exhibits no discharge. Left eye exhibits no discharge. No scleral icterus Neck: Normal range of motion. No tracheal deviation present. Cardiovascular: Normal rate and regular rhythm. Pulmonary: Effort normal, no respiratory distress. Abd: Soft, nondistended, no rebound/guarding, no psoas or obturator signs, no tenderness at Mcberney's point, no Guajardo's sign. Pt does not present with an exam that would be consistent with an acute surgical abdomen at this time. Tender to palpation left lower quadrant and left flank. Patient appears uncomfortable and is pacing. Musculoskeletal: Normal range of motion Neurologic: Alert and oriented to person, place and time. Skin: [place], warm and dry. Psychiatric: Normal mood and affect. Behavior is normal. Judgment and thought content normal. Nursing note and vital signs have been reviewed Diagnostics: CT scan of the abdomen pelvis reveals a 4 mm stone in the distal left ureter with mild amount of hydronephrosis. CBC/CMP within normal limits. Urinalysis does reveal positive RBCs. Therapeutics: NSS x2 L, Zofran, fentanyl, Toradol, Flomax Assessment and plan: 50-year-old gentleman who presents ER today complaining of left flank and left lower quadrant dull pain very similar to the prior kidney stone pain. Patient CT scan reveals a mild amount of hydronephrosis with a 4-1/2 mm stone in the distal left ureter. Patient received multiple doses of fentanyl and Toradol as well as Zofran Flomax and IV fluids. Patient will be reevaluated for possible discharge depending on his symptomatology. 5 AM: Patient been reevaluated by me multiple times throughout his ER visit. Patient is had multiple doses of pain meds and my reevaluation at 5 AM he reports that he feels much better but still having some discomfort in his left lower quadrant. Patient would like to go home with a trial of pain medicines orally that he can take and to follow-up with urology. Patient will be discharged home with a prescription for Stafford, Flomax, Zofran, and ibuprofen and will be given the phone number for the urologist in [facility]. Reassessment at the time of disposition demonstrates that the patient is in no acute distress. The patient has remained stable throughout the entire ED visit and is without objective evidence for acute process requiring urgent intervention or hospitalization. The patient is stable for discharge, counseling is provided as documented above, discussed symptomatic treatment and specific conditions for return. I have spoken with the patient/caregiver and discussed todays findings, in addition to providing specific details for the plan of care. Questions are answered and there is agreement with the plan. Definitive disposition and diagnosis as appropriate pending reevaluation and review of above. left flank Pain Score (Numeric/FACES): 10 - Related Data Allergies Allergy/AdvReac Type Severity Reaction Status Date / Time No Known Allergies Allergy Verified 02/14/21 01:08 Home Meds: Home Meds Losartan [Cozaar] 100 mg PO BEDTIME 01/19/18 [History] amLODIPine Besylate [Norvasc] 5 mg PO BEDTIME 01/19/18 [History] atorvaSTATin [Lipitor] 10 mg PO BEDTIME 01/19/18 [History] Tamsulosin [Flomax] 0.4 mg PO BEDTIME 03/14/18 [History] Past Medical History HEENT History: Reports: Allergic Rhinitis Cardiovascular History: Reports: High Cholesterol, Hypertension Respiratory History: Reports: None Gastrointestinal History: Reports: None Genitourinary History: Reports: Renal Calculus Other Genitourinary History: has passes several stones Musculoskeletal History: Reports: Fracture Other Musculoskeletal History: hx of fx toe Neurological History: Reports: Migraines Psychiatric History: Reports: None Endocrine/Metabolic History: Reports: Obesity/BMI 30+ Hematologic History: Reports: None Immunologic History: Reports: None Oncologic (Cancer) History: Reports: None Dermatologic History: Reports: None - Infectious Disease History Infectious Disease History: Reports: Chicken Pox - Past Surgical History HEENT Surgical History: Reports: None Cardiovascular Surgical History: Reports: None Male Surgical History: Reports: Lithotripsy ([facility]) (last year) Neurological Surgical History: Reports: Laminectomy, Lumbar Spine Musculoskeletal Surgical History: Reports: None Social & Family History - Family History Family Medical History: No Pertinent Family History - Caffeine Use Caffeine Use: Reports: Soda ED ROS GENERAL - Review of Systems Review Of Systems: See Below ED EXAM, GENERAL - Physical Exam Exam: See Below Course - Vital Signs Last Recorded V/S: Last Vital Signs Temp 97.3 F 02/14/21 01:03 Pulse 76 02/14/21 05:34 Resp 18 02/14/21 05:34 BP 160/107 H 02/14/21 05:34 Pulse Ox 93 L 02/14/21 05:34 - Orders/Labs/Meds Orders: Active Orders 24 hr Category Date Time Status Sodium Chloride 0.9% [Saline Flush] Med 02/14/21 01:07 Active 10 ml FLUSH ASDIRECTED PRN Sodium Chloride 0.9% [Saline Flush] Med 02/14/21 01:07 Active 2.5 ml FLUSH ASDIRECTED PRN Saline Lock Insert [OM.PC] Stat Oth 02/14/21 01:07 Ordered Medication Orders Sodium Chloride (Sodium Chloride 0.9% 10 Ml Syringe) 10 ml FLUSH ASDIRECTED PRN PRN Reason: Keep Vein Open Last Admin: 02/14/21 01:24 Dose: 10 ml Documented by: SYDNEY Sodium Chloride (Sodium Chloride 0.9% 2.5 Ml Syringe) 2.5 ml FLUSH ASDIRECTED PRN PRN Reason: Keep Vein Open Last Admin: 02/14/21 01:25 Dose: 2.5 ml Documented by: SYDNEY Labs: Laboratory Tests 02/14/21 02/14/21 02/14/21 Range/Units 01:16 01:16 01:36 WBC 6.50 (4.0-11.0) K/uL RBC 5.15 (4.50-5.90) M/uL Hgb 15.4 (13.0-17.0) g/dL Hct 45.0 (38.0-50.0) % MCV 87.4 (80.0-98.0) fL MCH 29.9 (27.0-32.0) pg MCHC 34.2 (31.0-37.0) g/dL RDW Std Deviation 39.7 (28.0-62.0) fl RDW Coeff of Alonso 12 (11.0-15.0) % Plt Count 245 (150-400) K/uL MPV 9.90 (7.40-12.00) fL Neut % (Auto) 69.9 (48.0-80.0) % Lymph % (Auto) 18.6 (16.0-40.0) % Holmes % (Auto) 9.2 (0.0-15.0) % Eos % (Auto) 2.0 (0.0-7.0) % Baso % (Auto) 0.3 (0.0-1.5) % Neut # (Auto) 4.5 (1.4-5.7) K/uL Lymph # (Auto) 1.2 (0.6-2.4) K/uL Holmes # (Auto) 0.6 (0.0-0.8) K/uL Eos # (Auto) 0.1 (0.0-0.7) K/uL Baso # (Auto) 0.0 (0.0-0.1) K/uL Nucleated RBC % 0.0 /100WBC Nucleated RBCs # 0 K/uL Sodium 136 (136-148) mmol/L Potassium 4.1 (3.5-5.1) mmol/L Chloride 99 (98-107) mmol/L Carbon Dioxide 28.0 (21.0-32.0) mmol/L BUN 17 (7.0-18.0) mg/dL Creatinine 1.3 (0.8-1.3) mg/dL Est Cr Clr Drug Dosing 77.68 mL/min Estimated GFR (MDRD) 58.7 ml/min Glucose 348 H (74-106) mg/dL Calcium 9.4 (8.5-10.1) mg/dL Total Bilirubin 0.3 (0.2-1.0) mg/dL AST 38 H (15-37) IU/L ALT 72 H (14-63) IU/L Alkaline Phosphatase 130 H (46-116) U/L Total Protein 8.0 (6.4-8.2) g/dL Albumin 3.7 (3.4-5.0) g/dL Globulin 4.3 H (2.6-4.0) g/dL Albumin/Globulin Ratio 0.9 (0.9-1.6) Urine Color YELLOW Urine Appearance HAZY Urine pH 5.5 (5.0-8.0) Ur Specific [place] >= 1.030 (1.001-1.035) Urine Protein TRACE H (NEGATIVE) mg/dL Urine Glucose (UA) >=1000 (NEGATIVE) mg/dL Urine Ketones NEGATIVE (NEGATIVE) mg/dL Urine Occult Blood LARGE H (NEGATIVE) Urine Nitrite NEGATIVE (NEGATIVE) Urine Bilirubin NEGATIVE (NEGATIVE) Urine Urobilinogen 0.2 (<2.0) EU/dL Ur Leukocyte Esterase NEGATIVE (NEGATIVE) Urine RBC TOO NUMEROUS TO CT (0-2/HPF) Urine WBC 0-2 (0-5/HPF) Ur Epithelial Cells OCCASIONAL (NONE-FEW) Urine Bacteria 2+ H (NEGATIVE) Meds: Medications Generic Name Dose Route Start Last Admin Trade Name Freq PRN Reason Stop Dose Admin Sodium Chloride 10 ml 02/14/21 01:07 02/14/21 01:24 Sodium Chloride 0.9% 10 Ml Syringe FLUSH 10 ml ASDIRECTED PRN Administration Keep Vein Open Sodium Chloride 2.5 ml 02/14/21 01:07 02/14/21 01:25 Sodium Chloride 0.9% 2.5 Ml Syringe FLUSH 2.5 ml ASDIRECTED PRN Administration Keep Vein Open Discontinued Medications Generic Name Dose Route Start Last Admin Trade Name Leena PRN Reason Stop Dose Admin Fentanyl 50 mcg 02/14/21 01:07 02/14/21 01:21 Fentanyl 50 Mcg/Ml Sdv IVPUSH 02/14/21 01:08 50 mcg ONETIME ONE Administration Fentanyl 100 mcg 02/14/21 01:54 02/14/21 02:03 Fentanyl 50 Mcg/Ml Sdv IVPUSH 02/14/21 01:55 100 mcg ONETIME ONE Administration Fentanyl 100 mcg 02/14/21 02:56 02/14/21 03:01 Fentanyl 50 Mcg/Ml Sdv IVPUSH 02/14/21 02:57 100 mcg ONETIME ONE Administration Hydromorphone HCl 1 mg 02/14/21 04:00 02/14/21 04:07 Hydromorphone 1 Mg/Ml Syringe IVPUSH 02/14/21 04:01 1 mg ONETIME ONE Administration Hydromorphone HCl 1 mg 02/14/21 05:30 02/14/21 05:40 Hydromorphone 1 Mg/Ml Syringe IVPUSH 02/14/21 05:31 1 mg ONETIME ONE Administration Sodium Chloride 1,000 mls @ 999 mls/hr 02/14/21 01:07 02/14/21 01:22 Normal Saline IV 02/14/21 02:07 999 mls/hr .Bolus ONE Administration Sodium Chloride 1,000 mls @ 999 mls/hr 02/14/21 02:56 02/14/21 03:02 Normal Saline IV 02/14/21 03:56 999 mls/hr .Bolus ONE Administration Ketorolac Tromethamine 30 mg 02/14/21 01:07 02/14/21 01:21 Ketorolac 30 Mg/Ml Sdv IVPUSH 02/14/21 01:08 30 mg ONETIME ONE Administration Ondansetron HCl 4 mg 02/14/21 01:07 02/14/21 01:22 Ondansetron 4 Mg/2 Ml Sdv IVPUSH 02/14/21 01:08 4 mg ONETIME ONE Administration Ondansetron HCl 4 mg 02/14/21 02:56 02/14/21 03:01 Ondansetron 4 Mg/2 Ml Sdv IVPUSH 02/14/21 02:57 4 mg ONETIME ONE Administration Tamsulosin HCl 0.4 mg 02/14/21 01:08 02/14/21 01:21 Tamsulosin 0.4 Mg Cap.Er PO 02/14/21 01:09 0.4 mg ONETIME ONE Administration Departure - Departure Time of Disposition: 05:02 Disposition: Home, Self-Care 01 Condition: Good Clinical Impression: Renal colic on left side, Hydronephrosis - Discharge Information Instructions: Renal Colic, [id number], Kidney Stones, [id number] Referrals: PCP,None [Primary Care Provider] - Forms: ED Department Discharge Additional Instructions: You were seen and evaluated in the ER today secondary to pain in your abdomen secondary to a 4-1/2 mm kidney stone on the left side. Kidney stone is traveled all the way down the ureter and is almost into your bladder. In the ER you have been given multiple doses of fentanyl and Dilaudid help with the pain as well as Zofran for nausea, Toradol for pain and Flomax to help squeeze the kidney stone out. You will be given a prescription for Stafford to help you with the pain at home as well as ibuprofen, Zofran for nausea, and Flomax to help with pushing the stone out. Please make an appointment to follow-up with urologist in [facility]. Dr. Olu Lux Urologist [address] [place] [address] Stafford 1 to 2 pills every 4 to 6 hours as needed for pain\ Ibuprofen 600 mg every 6 hours as needed for pain Zofran 1 tablet ODT every 6 hours for nausea Flomax 1 pill daily tell patient kidney stone out. The following information is given to patients seen in the emergency department who are being discharged to home. This information is to outline your options for follow-up care. We provide all patients seen in our emergency department with a follow-up referral. The need for follow-up, as well as the timing and circumstances, are variable depending upon the specifics of your emergency department visit. If you don't have a primary care physician on staff, we will provide you with a referral. We always advise you to contact your personal physician following an emergency department visit to inform them of the circumstance of the visit and for follow-up with them and/or the need for any referrals to a consulting specialist. The emergency department will also refer you to a specialist when appropriate. This referral assures that you have the opportunity for follow-up care with a specialist. All of these measure are taken in an effort to provide you with optimal care, which includes your follow-up. Under all circumstances we always encourage you to contact your private physician who remains a resource for coordinating your care. When calling for follow-up care, please make the office aware that this follow-up is from your recent emergency room visit. If for any reason you are refused follow-up, please contact the [facility] Emergency Department at and asked to speak to the emergency department charge nurse. [facility] [address] [place] [address] [place] [address] Sepsis Event Note (ED) - Evaluation Sepsis Screening Result: No Definite Risk - Focused Exam Vital Signs: Vital Signs Temp Pulse Resp BP Pulse Ox 02/14/21 05:34 76 18 160/107 H 93 L 02/14/21 04:29 88 18 171/100 H 93 L 02/14/21 03:13 92 18 175/104 H 96 02/14/21 02:05 96 18 178/109 H 96 02/14/21 01:03 97.3 F 97 16 195/118 H 98 - My Orders Last 24 Hours: My Active Orders 02/14/21 01:07 Sodium Chloride 0.9% [Saline Flush] 10 ml FLUSH ASDIRECTED PRN Sodium Chloride 0.9% [Saline Flush] 2.5 ml FLUSH ASDIRECTED PRN Saline Lock Insert [OM.PC] Stat - Assessment/Plan Last 24 Hours: My Active Orders 02/14/21 01:07 Sodium Chloride 0.9% [Saline Flush] 10 ml FLUSH ASDIRECTED PRN Sodium Chloride 0.9% [Saline Flush] 2.5 ml FLUSH ASDIRECTED PRN Saline Lock Insert [OM.PC] Stat
[2021-02-14] MEDS ORDERED: HYDROmorphone 1 MG/ML Syringe IVPUSH ONE ×2 (04:00→05:30)
[2021-02-14 05:35] VITALS: BP 160/107; PULSE 76
== END 2021-02-14 05:44 | disposition home or self-care (01) ==
LOC: MW.ED 00:58
DX: N13.2 Hydronephrosis with renal and ureteral calculous obstruction (principal); E78.00 Pure hypercholesterolemia, unspecified; I10 Essential (primary) hypertension; E66.9 Obesity, unspecified; Z68.35 Body mass index [BMI] 35.0-35.9, adult; Z79.899 Other long term (current) drug therapy
CPT/HCPCS: 36415; 74176; 80053; 81001; 85025; 96374; 96375; 96376; 99284; A9270; J1170; J1885; J2405; J3010; J7030

== ENCOUNTER 2021-04-03 23:11 | Emergency (ER) | payer BC ==
[2021-04-04] MEDS ORDERED: Morphine 4 MG/ML VIAL IVPUSH ONE (00:39)
[2021-04-04 00:54] LABS: BLOOD UREA NITROGEN,BUN 22 mg/dL (7.0-18.0); CARBON DIOXIDE,CO2 26.5 mmol/L (21.0-32.0); CHLORIDE,CL 101 mmol/L (98-107); GLUCOSE RANDOM 155 mg/dL (74-106); POTASSIUM,K 3.6 mmol/L (3.5-5.1); SODIUM,NA 138 mmol/L (136-148)
[2021-04-04] MEDS ORDERED: Iopamidol 755 MG/ML 500 ML Multipack Bottle IVPUSH ONE (01:19)
[2021-04-04] MEDS ORDERED: Lidocaine 5% 700 MG Patch TRDERM ONE (02:31)
[2021-04-04 02:43] VITALS: BP 122/81; PULSE 81
== END 2021-04-04 02:43 | disposition home or self-care (01) ==
LOC: MW.ED 23:11
DX: S22.32XA Fracture of one rib, left side, initial encounter for closed fracture (principal); S30.1XXA Contusion of abdominal wall, initial encounter; I10 Essential (primary) hypertension; E78.00 Pure hypercholesterolemia, unspecified; E66.9 Obesity, unspecified; Z68.30 Body mass index [BMI] 30.0-30.9, adult; Z79.899 Other long term (current) drug therapy; W22.09XA Striking against other stationary object, initial encounter
CPT/HCPCS: 36415; 71101; 74177; 80053; 82550; 84484; 85025; 85610; 85730; 93005; 96374; 99284; A9270; J2270; Q9967

== ENCOUNTER 2023-07-05 01:09 | Emergency (ER) | payer BC ==
[2023-07-05 01:35] LABS: BASOPHILS ABSOLUTE AUTO 0.07 K/uL (0.00-0.20); BASOPHILS PERCENT AUTO 0.8 % (0.0-1.0); EOSINOPHILS ABSOLUTE AUTO 0.32 K/uL (0.00-0.45); EOSINOPHILS PERCENT AUTO 3.8 % (0.0-6.0); HEMATOCRIT 44.2 % (42.0-52.0); HEMOGLOBIN 15.3 g/dL (14.0-18.0); IMMATURE GRAN ABSOLUTE AUTO 0.02 K/uL (0.00-0.05); IMMATURE GRAN PERCENT AUTO 0.2 % (0.0-0.4); LYMPHOCYTES ABSOLUTE AUTO 2.13 K/uL (1.00-4.80); LYMPHOCYTES PERCENT AUTO 25.2 % (24.0-44.0); MEAN CORPUSCULAR HEMOGLOBIN 30.2 pg (28.0-32.0); MEAN CORPUSCULAR HGB CONC 34.6 g/dL (32.0-36.0); MEAN CORPUSCULAR VOLUME 87.4 fL (83.0-99.0); MEAN PLATELET VOLUME 9.6 fL (9.4-12.4); MONOCYTES ABSOLUTE AUTO 0.69 K/uL (0.00-0.80); MONOCYTES PERCENT AUTO 8.2 % (0.0-8.0); NEUTROPHILS ABSOLUTE AUTO 5.22 K/uL (1.80-7.70); NEUTROPHILS PERCENT AUTO 61.8 % (41.0-71.0); PLATELET COUNT,PLT 314 K/uL (150-400); RED BLOOD CELL COUNT 5.06 M/uL (4.52-5.90); WHITE BLOOD CELL COUNT,WBC 8.45 K/uL (3.9-11.3)
[2023-07-05] MEDS: Losartan 50 MG Tab PO ONE (01:38)
[2023-07-05] MEDS: Hydrochlorothiazide 25 MG Tab PO ONE (01:38)
[2023-07-05] MEDS: Sodium Chloride 0.9% 2.5 ML Syringe FLUSH PRN (01:39)
[2023-07-05] MEDS: amLODIPine 5 MG Tab PO ONE (01:39)
[2023-07-05] MEDS: Sodium Chloride 0.9% 10 ML Syringe FLUSH PRN (01:39)
[2023-07-05 01:54] LABS: A/G RATIO 0.8 (0.9-1.6); ALBUMIN 3.4 g/dL (3.4-5.0); BILIRUBIN TOTAL 0.4 mg/dL (0.2-1.0); CALCIUM 8.5 mg/dL (8.5-10.1); CARBON DIOXIDE,CO2 29.5 mmol/L (21.0-32.0); CREATININE 1.1 mg/dL (0.8-1.3); EST CRCL DRUG DOSING (CG) 87.2 mL/min; POTASSIUM,K 3.4 mmol/L (3.5-5.1); PROTEIN TOTAL,TP 7.5 g/dL (6.4-8.2)
[2023-07-05] MEDS: Ketorolac 30 MG/ML SDV IVPUSH ONE (02:06)
[2023-07-05] MEDS: Codeine/guaiFENesin 10-100 MG/5 ML Syrup 5 ML Cup PO ONE (02:06)
[2023-07-05 03:32] VITALS: BP 141/87; PULSE 78
== END 2023-07-05 04:00 | disposition home or self-care (01) ==
LOC: MW.ED 01:09
DX: I10 Essential (primary) hypertension (principal); E78.00 Pure hypercholesterolemia, unspecified; E66.9 Obesity, unspecified; Z75.8 Other problems related to medical facilities and other health care; Z79.899 Other long term (current) drug therapy; Z68.34 Body mass index [BMI] 34.0-34.9, adult
CPT/HCPCS: 36415; 71045; 80053; 84484; 85025; 93005; 99284; A9270; J3490; 93010

== ENCOUNTER 2024-06-28 21:28 | Emergency (ER) | payer BC ==
[2024-06-28] MEDS: HYDROmorphone 0.5 MG/0.5 ML Syringe IVPUSH ONE (23:55)
[2024-06-29 00:03] LABS: BASOPHILS ABSOLUTE AUTO 0.08 K/uL (0.00-0.20); BASOPHILS PERCENT AUTO 0.9 % (0.0-1.0); EOSINOPHILS ABSOLUTE AUTO 0.28 K/uL (0.00-0.45); EOSINOPHILS PERCENT AUTO 3.3 % (0.0-6.0); HEMATOCRIT 40.7 % (42.0-52.0); HEMOGLOBIN 14.2 g/dL (14.0-18.0); IMMATURE GRAN ABSOLUTE AUTO 0.06 K/uL (0.00-0.05); IMMATURE GRAN PERCENT AUTO 0.7 % (0.0-0.4); MEAN CORPUSCULAR HEMOGLOBIN 29.1 pg (28.0-32.0); MEAN CORPUSCULAR HGB CONC 34.9 g/dL (32.0-36.0); MEAN CORPUSCULAR VOLUME 83.4 fL (83.0-99.0); MEAN PLATELET VOLUME 9.3 fL (9.4-12.4); MONOCYTES ABSOLUTE AUTO 0.67 K/uL (0.00-0.80); MONOCYTES PERCENT AUTO 7.9 % (0.0-8.0); NEUTROPHILS ABSOLUTE AUTO 5.69 K/uL (1.80-7.70); NEUTROPHILS PERCENT AUTO 67.2 % (41.0-71.0); PLATELET COUNT,PLT 328 K/uL (150-400); RED BLOOD CELL COUNT 4.88 M/uL (4.52-5.90); WHITE BLOOD CELL COUNT,WBC 8.48 K/uL (3.9-11.3)
[2024-06-29 00:25] LABS: A/G RATIO 0.7 (0.9-1.6); ALANINE AMINOTRANSFERASE,ALT 25 IU/L (14-63); ALBUMIN 3.2 g/dL (3.4-5.0); ALKALINE PHOSPHATASE 113 U/L (46-116); ASPARTATE AMNIOTRANSFERASE,AST 16 IU/L (15-37); BILIRUBIN TOTAL 0.5 mg/dL (0.2-1.0); BLOOD UREA NITROGEN,BUN 18 mg/dL (7.0-18.0); CALCIUM 8.7 mg/dL (8.5-10.1); CARBON DIOXIDE,CO2 30.3 mmol/L (21.0-32.0); CHLORIDE,CL 102 mmol/L (98-107); CREATININE 1.6 mg/dL (0.8-1.3); EST CRCL DRUG DOSING (CG) 61.03 mL/min; GLUCOSE RANDOM 177 mg/dL (74-106); POTASSIUM,K 3.5 mmol/L (3.5-5.1); PROTEIN TOTAL,TP 7.6 g/dL (6.4-8.2); SODIUM,NA 141 mmol/L (136-148)
[2024-06-29 00:27] LABS: ESTIMATED GFR 52 mL/min (>60)
[2024-06-29] MEDS: Iopamidol 755 MG/ML 500 ML Multipack Bottle IVPUSH ONE (00:49)
[2024-06-29 02:40] VITALS: BP 161/98; PULSE 75
== END 2024-06-29 02:40 | disposition home or self-care (01) ==
LOC: MW.ED 21:28
DX: M54.40 Lumbago with sciatica, unspecified side (principal); I10 Essential (primary) hypertension; R91.1 Solitary pulmonary nodule; R91.8 Other nonspecific abnormal finding of lung field; E78.00 Pure hypercholesterolemia, unspecified; E11.9 Type 2 diabetes mellitus without complications; E66.9 Obesity, unspecified; Z79.899 Other long term (current) drug therapy; Z68.30 Body mass index [BMI] 30.0-30.9, adult
CPT/HCPCS: 36415; 71275; 74174; 80053; 84484; 85025; 93005; 96374; 99284; Q9967; 99283

== ENCOUNTER 2024-07-25 10:18 | Day surgery (SDC) | payer BC ==
[~2024-07-25 10:18] MED LIST changes: -Lactated Ringers 1,000 ML IV SCH; -Sodium Chloride 0.9% 10 ML SDV IV PRN; +Sodium Chloride 0.9% 20 ML SDV IV PRN; -ceFAZolin 2 GM in Premix Bag 1 BAG IV ONE
[2024-07-25] MEDS: Lactated Ringers 1,000 ML IV SCH (11:12)
[2024-07-25] MEDS ORDERED: Lidocaine 2% 5 ML SDV ONE (11:21)
[2024-07-25] MEDS ORDERED: propofoL 500 MG/50 ML 50 ML ONE (11:21)
[2024-07-25 14:12] VITALS: BP 124/83; PULSE 70
== END 2024-07-25 13:00 | disposition home or self-care (01) ==
LOC: MW.SDS 10:18
PROVIDERS: ATTEND Surgery
DX: D12.3 Benign neoplasm of transverse colon (principal); D12.4 Benign neoplasm of descending colon; K31.7 Polyp of stomach and duodenum; K31.89 Other diseases of stomach and duodenum; K29.70 Gastritis, unspecified, without bleeding; R63.4 Abnormal weight loss; R59.0 Localized enlarged lymph nodes; I10 Essential (primary) hypertension; Z80.0 Family history of malignant neoplasm of digestive organs; Z79.899 Other long term (current) drug therapy
CPT/HCPCS: 00813; J2003; J2704; J7120

== ENCOUNTER 2024-08-12 01:43 | Emergency (ER) | payer BC ==
[2024-08-12 02:21] LABS: BASOPHILS ABSOLUTE AUTO 0.05 K/uL (0.00-0.20); BASOPHILS PERCENT AUTO 0.6 % (0.0-1.0); EOSINOPHILS ABSOLUTE AUTO 0.37 K/uL (0.00-0.45); EOSINOPHILS PERCENT AUTO 4.4 % (0.0-6.0); HEMATOCRIT 37.9 % (42.0-52.0); HEMOGLOBIN 12.6 g/dL (14.0-18.0); IMMATURE GRAN ABSOLUTE AUTO 0.01 K/uL (0.00-0.05); IMMATURE GRAN PERCENT AUTO 0.1 % (0.0-0.4); LYMPHOCYTES ABSOLUTE AUTO 1.39 K/uL (1.00-4.80); LYMPHOCYTES PERCENT AUTO 16.7 % (24.0-44.0); MEAN CORPUSCULAR HGB CONC 33.2 g/dL (32.0-36.0); MEAN CORPUSCULAR VOLUME 87.1 fL (83.0-99.0); MEAN PLATELET VOLUME 8.9 fL (9.4-12.4); MONOCYTES ABSOLUTE AUTO 0.66 K/uL (0.00-0.80); MONOCYTES PERCENT AUTO 7.9 % (0.0-8.0); NEUTROPHILS ABSOLUTE AUTO 5.84 K/uL (1.80-7.70); NEUTROPHILS PERCENT AUTO 70.3 % (41.0-71.0); PLATELET COUNT,PLT 316 K/uL (150-400); RED BLOOD CELL COUNT 4.35 M/uL (4.52-5.90); WHITE BLOOD CELL COUNT,WBC 8.32 K/uL (3.9-11.3)
[2024-08-12 02:34] LABS: INR 1.04 (0.86-1.11); PTT,PARTIAL THROMBOPLSTIN TIME 26.6 SEC (23.9-30.7)
[2024-08-12 02:55] LABS: PERCENT FE SATURATION 20.18 % (20-55)
[2024-08-12 02:58] LABS: A/G RATIO 0.7 (0.9-1.6); ALBUMIN 2.9 g/dL (3.4-5.0); BILIRUBIN TOTAL 0.4 mg/dL (0.2-1.0); CALCIUM 8.2 mg/dL (8.5-10.1); CARBON DIOXIDE,CO2 28.6 mmol/L (21.0-32.0); CREATININE 1.2 mg/dL (0.8-1.3); EST CRCL DRUG DOSING (CG) 81.38 mL/min; POTASSIUM,K 3.3 mmol/L (3.5-5.1); PROTEIN TOTAL,TP 6.9 g/dL (6.4-8.2)
[2024-08-12] MEDS: Iopamidol 755 MG/ML 500 ML Multipack Bottle IVPUSH ONE (03:08)
[2024-08-12] MEDS: Ondansetron 4 MG/2 ML SDV IVPUSH ONE (03:33)
[2024-08-12] MEDS: Ketorolac 30 MG/ML SDV IVPUSH ONE (03:33)
[2024-08-12] MEDS: Morphine 4 MG/ML Syringe IVPUSH ONE ×2 (03:33→05:05)
[2024-08-12 04:13] LABS: HEMOGLOBIN A1C 7.9 %
[2024-08-12 05:12] VITALS: BP 150/88; PULSE 70
== END 2024-08-12 05:12 | disposition home or self-care (01) ==
LOC: MW.ED 01:43
DX: N20.0 Calculus of kidney (principal); D50.9 Iron deficiency anemia, unspecified; M54.50 Low back pain, unspecified; R91.1 Solitary pulmonary nodule; R59.0 Localized enlarged lymph nodes; R07.81 Pleurodynia; I10 Essential (primary) hypertension; E11.9 Type 2 diabetes mellitus without complications; Z79.899 Other long term (current) drug therapy; Z98.890 Other specified postprocedural states
CPT/HCPCS: 36415; 71275; 72128; 72131; 80053; 83036; 83550; 83735; 83880; 84484; 85025; 85610; 85730; 93005; 96374; 96375; 99284; J1885; J2270; Q9967; 93010